=== PATIENT | male | born 1930 | race Asian ===

== ENCOUNTER 2016-11-03 15:49 | Inpatient (IN) | payer MEDICARE, MEDICAID ==
[2016-11-03] VITALS (7 sets, daily range): BP systolic 106–139; BP diastolic 64–95
[~2016-11-03] VITALS: Ht 160 cm; Wt 59.0 kg
[~2016-11-03 15:49] MED LIST: ATORVASTATIN CA20 MG ORAL; COMBIVENT RESPIM4 GM IH; FLUTICASONE PRO16 G1 NASAL; MIRAPEX1 MG PO; PLAVIX75 MG ORAL; PRAMIPEXOLE DI0.5 MG ORAL; TERAZOSIN HCL2 MG PO
[2016-11-03] MEDS ORDERED: Ipratropium 0.02% Inh Soln 2.5ml UD HHN ONE (16:00)
[2016-11-03] MEDS ORDERED: Albuterol ud Inhalation HHN ONE ×2 (16:00→17:00)
[2016-11-03] MEDS ORDERED: MELOXICAM15 MG PO (16:09)
[2016-11-03] MEDS ORDERED: MECLIZINE HCL12.5 MG ORAL (16:09)
[2016-11-03] MEDS ORDERED: MEGESTROL ACETA40 MG PO (16:09)
[2016-11-03] MEDS ORDERED: Morphine Sulfate 4mg/ml Inj IVP PRN (16:30)
[2016-11-03] MEDS ORDERED: DuoNeb 0.5-3(2.5)mg/3ml neb HHN PRN (16:30)
[2016-11-03] MEDS ORDERED: Nitroglycerin Subl 0.4mg tab (Bottle Of 25) SL PRN (16:30)
[2016-11-03] MEDS ORDERED: Morphine Sulfate 2mg/ml Inj IVP PRN ×2 (16:30→17:35)
[2016-11-03] MEDS ORDERED: LORazepam Inj 2mg/ml 1ml IV PRN (16:30)
--- NOTE | 2016-11-03 16:30 | Diagnostic Imaging Report ---
Indications: Altered mental status Technique: Continuous helical CT imaging of the brain was performed with automatic exposure control on a Siemens sensation [address] scanner. Axial and coronal images were reconstructed at 5 mm slice thickness and interval. CTDI volume(s): 70 mGy Total DLP: 1400 mGy-cm Findings: Comparison: October 1914 Images degraded by motion. Lacunar infarcts right rios radiata and head of left caudate nucleus, chronic microvascular ischemic changes throughout the cerebral periventricular and deep white matter, diffuse atrophy unchanged. No evidence of mass or hemorrhage, other attenuation abnormality, mass effect, midline shift, hydrocephalus or increased intracranial pressure. Bone window images are unremarkable. Visualized paranasal sinuses and mastoid air cells are clear. 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 Stable chronic microvascular ischemic changes bilateral white matter Stable atrophy The CT scanner at [facility] is accredited by the [employer] and the scans are performed using protocols designed to limit radiation exposure to as low as reasonably achievable to attain images of sufficient resolution adequate for diagnostic evaluation.
--- NOTE | 2016-11-03 16:34 | Diagnostic Imaging Report ---
Indications: Shortness of breath Technique: Portable AP chest Findings: Comparison: 03/15/15 Irregular consolidation and volume loss of the right upper lung with overlying chronic rib cage deformity, cortical scarring with interspersed lucencies and calcified granulomas left upper lung unchanged. Increased interstitial markings in both lung bases unchanged. No new pulmonary parenchymal or pleural abnormalities demonstrated. Heart size remains within normal limits. Aortic arch calcification, thoracolumbar scoliosis, diffuse osteopenia again noted. Aortic stent graft now visualized. IMPRESSION: No evidence of acute cardiopulmonary disease, unchanged Stable chronic changes as described Endotracheal and nasogastric extubation
[2016-11-03 16:40] LABS: BASOPHILS % (AUTO) 2.3 % (0.0-2.0); EOSINOPHILS % (AUTO) 0.7 % (0.0-3.0); LYMPHOCYTES % (AUTO) 6.9 % (20.0-45.0); MEAN CORPUSCULAR HEMOGLOBIN 36.5 PG (27.0-31.0); MEAN CORPUSCULAR HGB CONC 36.2 G/DL (32.0-36.0); MEAN CORPUSCULAR VOLUME 101 FL (80-99); MEAN PLATELET VOLUME 5.7 FL (6.5-10.1); MONOCYTES % (AUTO) 14.7 % (1.0-10.0); NEUTROPHILS % (AUTO) 75.4 % (45.0-75.0); PLATELET COUNT 178 K/UL (150-450); RED BLOOD COUNT 3.35 M/UL (4.70-6.10); RED CELL DISTRIBUTION WIDTH 12.1 % (11.6-14.8); WHITE BLOOD COUNT 4.9 K/UL (4.8-10.8)
[2016-11-03 16:45] LABS: ALANINE AMINOTRANSFERASE 23 U/L (3-41); ALBUMIN/GLOBULIN RATIO 1.4 (1.0-2.7); ANION GAP 12 (5-15); ASPARTATE AMINO TRANSFERASE 37 U/L (5-40); CALCIUM 9.5 mg/dL (8.6-10.2); CARBON DIOXIDE 32 mEQ/L (20-30); CHLORIDE 96 mEQ/L (98-107); HEMOLYSIS 119; POTASSIUM 4.9 mEQ/L (3.4-4.9); SODIUM 140 mEQ/L (135-145); TOTAL PROTEIN 6.3 g/dL (6.6-8.7)
[2016-11-03 16:46] LABS: TROPONIN I < 0.30 ng/mL (<=0.30)
--- NOTE | 2016-11-03 16:46 | Emergency Room Report ---
History of Present Illness General Chief Complaint: Altered Level of Consciousness Source: Medical Record, EMS, PMD Present Illness HPI This patient is brought in by EMS. The patient is unable to give a history. I also obtained the patient's medical record from the primary care physician Dr. Anthony. This patient has a history of COPD and respiratory failure. He is status post a lobectomy and has restrictive lung disease. His primary physician states that he sent him in because he has had worsening shortness of breath and decreased mentation lately. The who knows this patient is not here. EMS report that he was hypoxemic on arrival with O2 sats in the 80s. He did respond to based mask oxygen. The patient has not respond other than agitated with pain. Allergies: Coded Allergies: No Known Allergies (Unverified , 03/13/15) Patient History Past Medical History: see triage record, old chart reviewed, COPD, other - Severe kyphosoliosis. Past Surgical History: other - Lobectomy Social History: Denies: alcohol use, drug use, smoking Reviewed Nursing Documentation: PMH: Agreed, PSxH: Agreed Nursing Documentation-PMH Hx Cardiac Problems: Yes Hx COPD: Yes Hx Cancer: No Hx Gastrointestinal Problems: No Hx Neurological Problems: Yes Hx Seizures: Yes Hx Dizziness: Yes Review of Systems All Other Systems: limited Physical Exam Vital Signs Date Time Temp Pulse Resp B/P Pulse Ox O2 Delivery O2 Flow Rate FiO2 11/03/16 15:28 97.3 86 14 140/90 94 Non-Rebreather 11/03/16 16:26 2.0 Sp02 EP Interpretation: reviewed, abnormal General Appearance: no apparent distress, non-toxic, lethargic Head: normocephalic, atraumatic Eyes: bilateral eye PERRL, bilateral eye normal inspection ENT: normal pharynx, no angioedema Neck: limited range of motion - Severe kypho-scoliosis Respiratory: chest non-tender, lungs clear, normal breath sounds, no respiratory distress, no retraction, no accessory muscle use Cardiovascular #1: regular rate, rhythm, no edema, systolic murmur Gastrointestinal: normal bowel sounds, non tender, soft, non-distended, no guarding, no rebound Rectal: deferred Musculoskeletal: normal range of motion, non-tender, swelling - 1+pitting edema BLE Neurologic: sensory intact, other - Lethargic but will open eye to name ([place] ) and squeeze hand. Unable to fully assess. Non-focal Psychiatric: judgement/insight normal, memory normal, mood/affect normal, no suicidal/homicidal ideation Skin: normal color, no rash, warm/dry, well hydrated Medical Decision Making Diagnostic Impression: Primary Impression: Respiratory failure, acute ER Course This elderly male presents with hypoxemia and CO2 retention. He is able to follow simple commands in [place]. Likely this patient has chronic CO2 retention. He is placed on BiPAP. He is maintaining his oxygen saturation in the high 90s. He does have an elevated PCO2. However, his respiratory rate is 16-18 and he appears to be doing well without respiratory distress. Given the patient's age and severe cervical scoliosis that has the patient flexed at 45 in the neck, I felt that paralyzation and intubation without anesthesia backup would be dangerous for this patient. Therefore, given that the patient is doing well on BiPAP I decided to avoid intubation. This was discussed with the on-call vessel captain who agreed with the plan. I did not identify an infectious etiology, however, I did give the patient respiratory antibiotics as a precaution. CT of the head shows no acute CVA or bleed. I discussed the case with the patient's primary care physician who sent him into the emergency department. He requested he be admitted by an production recovery operator and vessel captain. This patient is admitted to the ICU for further evaluation and treatment. This patient is critically ill. This patient required complex medical decision- making, aggressive intervention, extensive laboratory workup and monitoring. Critical care time: 40 minutes. Labs Test 11/03/16 16:00 11/03/16 17:45 White Blood Count 4.9 K/UL (4.8-10.8) Red Blood Count 3.35 M/UL (4.70-6.10) Hemoglobin 12.2 G/DL (14.2-18.0) Hematocrit 33.8 % (42.0-52.0) Mean Corpuscular Volume 101 FL (80-99) Mean Corpuscular Hemoglobin 36.5 PG (27.0-31.0) Mean Corpuscular Hemoglobin Concent 36.2 G/DL (32.0-36.0) Red Cell Distribution Width 12.1 % (11.6-14.8) Platelet Count 178 K/UL (150-450) Mean Platelet Volume 5.7 FL (6.5-10.1) Neutrophils (%) (Auto) 75.4 % (45.0-75.0) Lymphocytes (%) (Auto) 6.9 % (20.0-45.0) Monocytes (%) (Auto) 14.7 % (1.0-10.0) Eosinophils (%) (Auto) 0.7 % (0.0-3.0) Basophils (%) (Auto) 2.3 % (0.0-2.0) Urine Color Yellow Urine Appearance Clear Urine pH 5 (4.5-8.0) Urine Specific [place] 1.020 (1.005-1.035) Urine Protein 2+ (NEGATIVE) Urine Glucose (UA) Negative (NEGATIVE) Urine Ketones 1+ (NEGATIVE) Urine Occult Blood 5+ (NEGATIVE) Urine Nitrite Negative (NEGATIVE) Urine Bilirubin Negative (NEGATIVE) Urine Urobilinogen Normal MG/DL (0.0-1.0) Urine Leukocyte Esterase 1+ (NEGATIVE) Urine RBC Tntc /HPF (0 - 0) Urine WBC 0-2 /HPF (0 - 0) Urine Squamous Epithelial Cells None /LPF (NONE/OCC) Urine Bacteria Few /HPF (NONE) Sodium Level 140 mEQ/L (135-145) Potassium Level 4.9 mEQ/L (3.4-4.9) Chloride Level 96 mEQ/L (98-107) Carbon Dioxide Level 32 mEQ/L (20-30) Anion Gap 12 (5-15) Blood Urea Nitrogen 32 mg/dL (7-23) Creatinine 1.0 mg/dL (0.7-1.2) Estimat Glomerular Filtration Rate mL/min (>60) Glucose Level 131 mg/dL (74-106) Lactic Acid Level 1.40 mmol/L (0.66-2.22) Calcium Level 9.5 mg/dL (8.6-10.2) Total Bilirubin 0.2 mg/dL (0.0-1.2) Aspartate Amino Transf (AST/SGOT) 37 U/L (5-40) Alanine Aminotransferase (ALT/SGPT) 23 U/L (3-41) Alkaline Phosphatase 53 U/L (40-129) Total Creatine Kinase 161 U/L (38-174) Creatine Kinase MB 5.7 ng/mL (< 6.7) Creatine Kinase MB Relative Index 3.5 Troponin I < 0.30 ng/mL (<=0.30) Total Protein 6.3 g/dL (6.6-8.7) Albumin 3.7 g/dL (3.5-5.2) Globulin 2.6 g/dL Albumin/Globulin Ratio 1.4 (1.0-2.7) Arterial Blood pH 7.270 (7.350-7.450) Arterial Blood Partial Pressure CO2 68.0 mmHg (35.0-45.0) Arterial Blood Partial Pressure O2 73.6 mmHg (75.0-100.0) Arterial Blood HCO3 30.5 mmol/L (22.0-26.0) Arterial Blood Oxygen Saturation 91.4 % (92.0-98.0) Arterial Blood Base Excess 2.1 Sam Test Positive EKG Diagnostic Results Rate: normal Rhythm: NSR ST Segments: no acute changes Rhythm Strip Diag. Results EP Interpretation: yes Rate: 90's Rhythm: NSR, no PVC's, no ectopy Chest X-Ray Diagnostic Results EP Interpretation: Yes Findings: no consolidation, no effusion, no pneumothorax, no acute cardiopulmonary disease Number of Views: 1 CT/MRI/US Diagnostic Results CT/MRI/US Diagnostic Results : Imaging Test Ordered: CT head Impression No ICB. No acute process. See official report. Last Vital Signs Date Time Temp Pulse Resp B/P Pulse Ox O2 Delivery O2 Flow Rate FiO2 11/03/16 16:30 96 26 98 Nasal Cannula 2.0 11/03/16 16:26 98.8 126/64 Disposition: ADMITTED INPATIENT Condition: Critical Referrals: NOT CHOSEN IPA/,REFERRING (PCP) GISELLE SARAVIA D.O. November 03, 2016 16:46
[2016-11-03 16:47] LABS: APPEARANCE,URINE CLEAR; KETONES,URINE 1+ (NEGATIVE); LEUKOCYTE ESTERASE ,URINE 1+ (NEGATIVE); NITRITE,URINE NEGATIVE (NEGATIVE); PH,URINE 5 (4.5-8.0); PROTEIN,URINE 2+ (NEGATIVE); UROBILINOGEN,URINE NORMAL MG/DL (0.0-1.0)
[2016-11-03 16:56] LABS: CKMB 5.7 ng/mL (< 6.7)
[2016-11-03 16:57] LABS: RBC,URINE TNTC /HPF (0 - 0); WBC,URINE 0-2 /HPF (0 - 0)
[2016-11-03 16:58] LABS: BACTERIA,URINE FEW /HPF
[2016-11-03] MEDS ORDERED: METHYLPREDNISOLONE SOD SUCC IVPB ONE (17:00)
[2016-11-03] MEDS ORDERED: cefTRIAXone 1 GM in NS 55 ML IVPB ONE (17:00)
[2016-11-03] MEDS ORDERED: NS IVPB ONE (17:00)
[2016-11-03] MEDS ORDERED: Solu-MEDROL 125mg Inj IVP ONE (17:00)
[2016-11-03] MEDS ORDERED: D5 1/2NS 1,000 ML IV SCH (18:00)
[2016-11-03 18:01] LABS: ABG ALLEN TEST POSITIVE; ABG BASE EXCESS 2.1
[2016-11-03 19:42] LABS: ABG ALLEN TEST POSITIVE; ABG BASE EXCESS 0.7; ABG PCO2 65.4 mmHg (35.0-45.0)
[2016-11-03] MEDS: Piperacillin/Tazobactam 3.375 GM in D5W 110 ML IVPB SCH (20:00)
[2016-11-03] MEDS: NovoLOG Insulin Flexpen SUBQ SCH (21:00)
[2016-11-03] MEDS: Heparin 5000 units/ml inj SUBQ SCH (21:00)
--- NOTE | 2016-11-03 23:19 | History and Physical ---
History of Present Illness General Date patient seen: November 03, 2016 Reason for Hospitalization: Altered Level of Consciousness Present Illness HPI 85 year old male with hx of advanced COPD, s/p thoracoplasty, restrictive lung disease, brought in by EMS because of worsening shortness of breath and decreased mentation lately. EMS report that he was hypoxemic on arrival with O2 sats in the 80s. He did respond to based mask oxygen. He was in respiratory failure in ER and was put on BIPAP and transferring to ICU> Allergies: Coded Allergies: No Known Allergies (Unverified , 03/13/15) Medication History Scheduled Atorvastatin Calcium* (Atorvastatin Calcium*), 10 MG ORAL BEDTIME, (Reported) Clopidogrel Bisulfate* (Plavix*), 75 MG ORAL DAILY, (Reported) Meloxicam* (Meloxicam*), 12.5 MG PO DAILY, (Reported) Pramipexole Dihydrochloride* (Mirapex*), 0.5 MG ORAL THREE TIMES A DAY, ( Reported) Miscellaneous Medications Ipratropium/Albuterol Sulfate (Combivent Respimat Inhal [place]), 4 GM IH, ( Reported) Megestrol Acetate (Megestrol Acetate), 40 MG PO, (Reported) Pramipexole Di-Hcl (Mirapex), 0.5 MG PO, (Reported) Terazosin Hcl (Terazosin Hcl), 2 MG PO, (Reported) Discontinued Medications Fluticasone Propionate* (Fluticasone Propionate*), 1 SPRAY NASAL DAILY, ( Reported) Discontinued Reason: Pt stopped taking med Meclizine Hcl* (Meclizine*), 12.5 MG ORAL THREE TIMES A DAY, (Reported) Discontinued Reason: Pt stopped taking med Patient History Healthcare decision maker carla buchanan, daughter Resuscitation status Full Code Advanced Directive on File No Past Medical/Surgical History Past Medical/Surgical History: (1) Restrictive lung disease (2) thoracoplasy (3) Restless leg syndrome Physical Exam General Appearance: WD/WN Lines, tubes and drains: peripheral HEENT: normocephalic, atraumatic Neck: non-tender, supple Respiratory/Chest: chest wall non-tender, rhonchi - bilaterally Breasts: no masses Abdomen: normal bowel sounds, non tender Genitourinary/Rectal: normal genital exam, normal rectal exam Last 24 Hour Vital Signs Date Time Temp Pulse Resp B/P Pulse Ox O2 Delivery O2 Flow Rate FiO2 11/03/16 22:47 91 24 96 Facial 30 11/03/16 22:01 80 20 131/74 97 Bi-pap 30 11/03/16 21:07 93 20 99 Facial 30 11/03/16 21:00 90 11/03/16 21:00 30 11/03/16 21:00 97.5 90 22 129/78 96 Bi-pap 30 11/03/16 20:35 84 18 143/83 97 Bi-pap 30 11/03/16 19:51 85 16 94 Facial 30 11/03/16 19:30 86 16 116/77 97 Bi-pap 30 11/03/16 18:28 97.0 97 20 106/67 96 Bi-pap 30 11/03/16 18:26 30 11/03/16 17:23 91 22 139/95 95 Nasal Cannula 4.0 11/03/16 16:30 96 26 98 Nasal Cannula 2.0 11/03/16 16:29 98 22 Nasal Cannula 2.0 11/03/16 16:29 96 26 Nasal Cannula 2.0 11/03/16 16:26 98.8 98 22 126/64 99 Nasal Cannula 2.0 11/03/16 15:28 97.3 86 14 140/90 94 Non-Rebreather Laboratory Tests Test 11/03/16 16:00 11/03/16 17:45 11/03/16 19:31 White Blood Count 4.9 K/UL (4.8-10.8) Red Blood Count 3.35 M/UL (4.70-6.10) L Hemoglobin 12.2 G/DL (14.2-18.0) L Hematocrit 33.8 % (42.0-52.0) L Mean Corpuscular Volume 101 FL (80-99) H Mean Corpuscular Hemoglobin 36.5 PG (27.0-31.0) H Mean Corpuscular Hemoglobin Concent 36.2 G/DL (32.0-36.0) H Red Cell Distribution Width 12.1 % (11.6-14.8) Platelet Count 178 K/UL (150-450) Mean Platelet Volume 5.7 FL (6.5-10.1) L Neutrophils (%) (Auto) 75.4 % (45.0-75.0) H Lymphocytes (%) (Auto) 6.9 % (20.0-45.0) L Monocytes (%) (Auto) 14.7 % (1.0-10.0) H Eosinophils (%) (Auto) 0.7 % (0.0-3.0) Basophils (%) (Auto) 2.3 % (0.0-2.0) H Urine Color Yellow Urine Appearance Clear Urine pH 5 (4.5-8.0) Urine Specific [place] 1.020 (1.005-1.035) Urine Protein 2+ (NEGATIVE) H Urine Glucose (UA) Negative (NEGATIVE) Urine Ketones 1+ (NEGATIVE) H Urine Occult Blood 5+ (NEGATIVE) H Urine Nitrite Negative (NEGATIVE) Urine Bilirubin Negative (NEGATIVE) Urine Urobilinogen Normal MG/DL (0.0-1.0) Urine Leukocyte Esterase 1+ (NEGATIVE) H Urine RBC Tntc /HPF (0 - 0) H Urine WBC 0-2 /HPF (0 - 0) Urine Squamous Epithelial Cells None /LPF (NONE/OCC) Urine Bacteria Few /HPF (NONE) Sodium Level 140 mEQ/L (135-145) Potassium Level 4.9 mEQ/L (3.4-4.9) Chloride Level 96 mEQ/L (98-107) L Carbon Dioxide Level 32 mEQ/L (20-30) H Anion Gap 12 (5-15) Blood Urea Nitrogen 32 mg/dL (7-23) H Creatinine 1.0 mg/dL (0.7-1.2) Estimat Glomerular Filtration Rate mL/min (>60) Glucose Level 131 mg/dL (74-106) H Lactic Acid Level 1.40 mmol/L (0.66-2.22) Calcium Level 9.5 mg/dL (8.6-10.2) Total Bilirubin 0.2 mg/dL (0.0-1.2) Aspartate Amino Transf (AST/SGOT) 37 U/L (5-40) Alanine Aminotransferase (ALT/SGPT) 23 U/L (3-41) Alkaline Phosphatase 53 U/L (40-129) Total Creatine Kinase 161 U/L (38-174) Creatine Kinase MB 5.7 ng/mL (< 6.7) Creatine Kinase MB Relative Index 3.5 Troponin I < 0.30 ng/mL (<=0.30) Total Protein 6.3 g/dL (6.6-8.7) L Albumin 3.7 g/dL (3.5-5.2) Globulin 2.6 g/dL Albumin/Globulin Ratio 1.4 (1.0-2.7) Arterial Blood pH 7.270 (7.350-7.450) 7.265 (7.350-7.450) Arterial Blood Partial Pressure CO2 68.0 mmHg (35.0-45.0) *H 65.4 mmHg (35.0-45.0) *H Arterial Blood Partial Pressure O2 73.6 mmHg (75.0-100.0) L 87.2 mmHg (75.0-100.0) Arterial Blood HCO3 30.5 mmol/L (22.0-26.0) H 29.0 mmol/L (22.0-26.0) H Arterial Blood Oxygen Saturation 91.4 % (92.0-98.0) L 94.1 % (92.0-98.0) Arterial Blood Base Excess 2.1 0.7 Sam Test Positive Positive Height (Feet): 5 Height (Inches): 3.00 Weight (Pounds): 130 Medications Current Medications Medications (Trade) Dose Ordered Sig/Jer Route PRN Reason Start Time Stop Time Status Last Admin Dose Admin Albuterol/ Ipratropium (DuoNeb 0.5-3(2.5)mg/3ml) 3 ml Q4H PRN HHN dyspnea 11/03/16 16:30 11/08/16 16:29 Dextrose (Dextrose 50%) STAT PRN IV Hypoglycemia 11/03/16 16:30 12/03/16 16:29 Dextrose/Sodium Chloride (D5 0.45% NS) 1,000 ml @ 50 mls/hr Q20H IV 11/03/16 18:00 12/03/16 17:59 11/03/16 18:00 Heparin Sodium (Porcine) (Heparin 5000 units/ml) 5,000 units EVERY 12 HOURS SUBQ 11/03/16 21:00 12/03/16 20:59 11/03/16 21:00 Insulin Aspart (NovoLOG) BEFORE MEALS AND HS SUBQ 11/03/16 21:00 12/03/16 20:59 11/03/16 21:00 Lorazepam (Ativan 2mg/ml 1ml) 2 mg Q4H PRN IV For Anxiety 11/03/16 16:30 11/10/16 16:29 Methylprednisolone Sodium Succinate (Solu-MEDROL) 60 mg EVERY 6 HOURS IV 11/03/16 18:00 12/03/16 17:59 Morphine Sulfate (Morphine Sulfate) 2 mg Q4H PRN IVP MODERATE PAIN 4-6 11/03/16 17:35 11/10/16 16:29 Morphine Sulfate (Morphine Sulfate) 4 mg Q4H PRN IVP PAIN 7-10 11/03/16 16:30 11/10/16 16:29 Nitroglycerin (Ntg) 0.4 mg Q5M X 3 DOSES PRN SL Prn Chest Pain 11/03/16 16:30 12/03/16 16:29 Ondansetron HCl 4 mg 4 mg Q6H PRN IVP Nausea & Vomiting 11/03/16 16:30 12/03/16 16:29 Pantoprazole 40 mg 40 mg DAILY IV 11/04/16 09:00 12/04/16 08:59 Piperacillin Sod/ Tazobactam Sod/ Dextrose (Zosyn/D5W) 110 ml @ 27.5 mls/hr EVERY 8 HOURS IVPB 11/03/16 20:00 11/10/16 19:59 11/03/16 20:00 Assessment/Plan Problem List: (1) Respiratory failure, acute (2) Aspiration pneumonia ICD Codes: J69.0 - Pneumonitis due to inhalation of food and vomit SNOMED: 203878977 (3) Restrictive lung disease ICD Codes: J98.4 - Other disorders of lung SNOMED: 75656365 (4) Encephalopathy acute (5) thoracoplasy Assessment/Plan titrate bipap NG tube feeding titrate fio2 check sputum ICU monitoring dvt prophylaxis stress ulcer prophylaxis. MARLYS WYMAN November 03, 2016 23:19
[2016-11-04] VITALS (24 sets, daily range): BP systolic 95–140; BP diastolic 51–82
[2016-11-04] MEDS: Solu-MEDROL 125mg Inj IV SCH ×6 (00:49→23:41)
[2016-11-04] MEDS: Piperacillin/Tazobactam 3.375 GM in D5W 110 ML IVPB SCH ×3 (05:48→23:39)
[2016-11-04] MEDS: NovoLOG Insulin Flexpen SUBQ SCH ×5 (06:19→23:44)
[2016-11-04 06:29] LABS: MEAN CORPUSCULAR HEMOGLOBIN 32.9 PG (27.0-31.0); MEAN CORPUSCULAR HGB CONC 32.7 G/DL (32.0-36.0); MEAN CORPUSCULAR VOLUME 101 FL (80-99); MEAN PLATELET VOLUME 5.7 FL (6.5-10.1); PLATELET COUNT 203 K/UL (150-450); RED BLOOD COUNT 3.69 M/UL (4.70-6.10); RED CELL DISTRIBUTION WIDTH 12.6 % (11.6-14.8); WHITE BLOOD COUNT 3.4 K/UL (4.8-10.8)
[2016-11-04 06:39] LABS: ALANINE AMINOTRANSFERASE 20 U/L (3-41); ALBUMIN/GLOBULIN RATIO 1.3 (1.0-2.7); ANION GAP 13 (5-15); ASPARTATE AMINO TRANSFERASE 24 U/L (5-40); CALCIUM 8.4 mg/dL (8.6-10.2); CARBON DIOXIDE 28 mEQ/L (20-30); CHLORIDE 100 mEQ/L (98-107); CREATININE 0.8 mg/dL (0.7-1.2); CRP QUANT 3.8 mg/dL (< 0.5); HEMOLYSIS 8; MAGNESIUM 2.1 mg/dL (1.7-2.5); PHOSPHORUS 3.5 mg/dL (2.5-4.8); POTASSIUM 4.3 mEQ/L (3.4-4.9); SODIUM 141 mEQ/L (135-145); TOTAL PROTEIN 5.4 g/dL (6.6-8.7)
[2016-11-04] MEDS: Pantoprazole Inj IV SCH (10:25)
[2016-11-04] MEDS: Heparin 5000 units/ml inj SUBQ SCH ×2 (10:27→21:04)
[2016-11-04 10:43] LABS: ABG ALLEN TEST POSITIVE; ABG BASE EXCESS 3.4
[2016-11-04 10:49] LABS: ERYTHROCYTE SEDIMENTATION RATE 9 MM/HR (0-30)
--- NOTE | 2016-11-04 10:49 | Diagnostic Imaging Report ---
Indication: Dyspnea Technique: XRAY CHEST 1 V Comparison: 11/03/16 Findings: Nasogastric tube is now present within the stomach. The cardiomediastinal silhouette is stable. There is again deformity of the right hemithorax. The lungs are unchanged without new infiltrates. Abdominal aortic stent graft is partially visualized. The bilateral costophrenic angles are again blunted. Impression: Nasogastric tube placement within the stomach. Otherwise stable chest.
--- NOTE | 2016-11-04 11:47 | Pulmonolgy Critical Care Note ---
Critical Care - Asmt/Plan Problems: (1) Respiratory failure, acute (2) Aspiration pneumonia (3) Encephalopathy acute (4) thoracoplasy (5) Restrictive lung disease Respiratory: monitor respiratory rate, adjust FIO2, CXR, ABG Cardiac: continue to monitor HR/BP Renal: F/U I&O, decrease IV fluid Infectious Disease: check cultures, continue antibiotics Gastrointestinal: continue feedings/current rate, adjust feedings Endocrine: monitor blood sugar Hematologic: transfuse if hgb<8.5 Neurologic: PRN Ativan, keep patient comfortable Affect: PRN ativan Prophylaxis: Protonix Disposition: keep in ICU Discussed with: nurses, consultants, case finisherrestaurant operations manager - Objective Last 24 Hour Vital Signs Date Time Temp Pulse Resp B/P Pulse Ox O2 Delivery O2 Flow Rate FiO2 11/04/16 07:00 82 26 100 Facial 40 11/04/16 07:00 84 19 132/82 99 Bi-pap 40 11/04/16 06:00 90 19 133/72 96 Bi-pap 40 11/04/16 05:13 78 22 98 Facial 40 11/04/16 05:00 80 20 140/71 99 Bi-pap 40 11/04/16 04:00 97.2 81 20 125/70 98 Bi-pap 40 11/04/16 04:00 40 11/04/16 04:00 81 11/04/16 03:00 81 20 124/71 97 Bi-pap 40 11/04/16 02:45 88 22 97 Facial 40 11/04/16 02:00 80 20 127/77 98 Bi-pap 40 11/04/16 01:00 78 20 137/78 98 Bi-pap 40 11/04/16 00:57 77 19 99 Facial 40 11/04/16 00:00 77 11/04/16 00:00 97.3 77 20 118/78 94 Bi-pap 30 11/04/16 00:00 30 11/03/16 23:00 82 21 123/73 97 Bi-pap 30 11/03/16 22:47 91 24 96 Facial 30 11/03/16 22:01 80 20 131/74 97 Bi-pap 30 11/03/16 21:07 93 20 99 Facial 30 11/03/16 21:00 90 11/03/16 21:00 30 11/03/16 21:00 97.5 90 22 129/78 96 Bi-pap 30 11/03/16 20:35 84 18 143/83 97 Bi-pap 30 11/03/16 19:51 85 16 94 Facial 30 11/03/16 19:30 86 16 116/77 97 Bi-pap 30 11/03/16 18:28 97.0 97 20 106/67 96 Bi-pap 30 11/03/16 18:26 30 11/03/16 17:23 91 22 139/95 95 Nasal Cannula 4.0 11/03/16 16:30 96 26 98 Nasal Cannula 2.0 11/03/16 16:29 98 22 Nasal Cannula 2.0 11/03/16 16:29 96 26 Nasal Cannula 2.0 11/03/16 16:26 98.8 98 22 126/64 99 Nasal Cannula 2.0 11/03/16 15:28 97.3 86 14 140/90 94 Non-Rebreather Status: awake Condition: critical HEENT: atraumatic Lungs: clear Heart: HR/BP stable Abdomen: soft, non-tender, feeding tube Extremities: no C/C/E Accucheck: 120 Critical Care - Subjective ROS Limited/Unobtainable: Yes ICU Day: 2 Intubation Day: on and off bipap Condition: critical EKG Rhythm: Sinus Rhythm FI02: 40 Sputum Amount: None Fluids: d5 1/2 NS 50 cc/hour Tube Feeding Amount: 20 I&O: Intake and Output 11/03/16 11/04/16 19:00 07:00 Intake Total 55 ml 745.0 ml Output Total 760 ml 440 ml Balance -705 ml 305.0 ml Intake Oral 0 ml IV Total 55 ml 665.0 ml Tube Feeding 80 ml Output Urine Total 760 ml 440 ml CXR: no change Labs: Laboratory Tests Test 11/03/16 16:00 11/03/16 17:45 11/03/16 19:31 11/04/16 03:48 White Blood Count 4.9 K/UL (4.8-10.8) 3.4 K/UL (4.8-10.8) L Red Blood Count 3.35 M/UL (4.70-6.10) L 3.69 M/UL (4.70-6.10) L Hemoglobin 12.2 G/DL (14.2-18.0) L 12.1 G/DL (14.2-18.0) L Hematocrit 33.8 % (42.0-52.0) L 37.1 % (42.0-52.0) L Mean Corpuscular Volume 101 FL (80-99) H 101 FL (80-99) H Mean Corpuscular Hemoglobin 36.5 PG (27.0-31.0) H 32.9 PG (27.0-31.0) H Mean Corpuscular Hemoglobin Concent 36.2 G/DL (32.0-36.0) H 32.7 G/DL (32.0-36.0) Red Cell Distribution Width 12.1 % (11.6-14.8) 12.6 % (11.6-14.8) Platelet Count 178 K/UL (150-450) 203 K/UL (150-450) Mean Platelet Volume 5.7 FL (6.5-10.1) L 5.7 FL (6.5-10.1) L Neutrophils (%) (Auto) 75.4 % (45.0-75.0) H % (45.0-75.0) Lymphocytes (%) (Auto) 6.9 % (20.0-45.0) L % (20.0-45.0) Monocytes (%) (Auto) 14.7 % (1.0-10.0) H % (1.0-10.0) Eosinophils (%) (Auto) 0.7 % (0.0-3.0) % (0.0-3.0) Basophils (%) (Auto) 2.3 % (0.0-2.0) H % (0.0-2.0) Urine Color Yellow Urine Appearance Clear Urine pH 5 (4.5-8.0) Urine Specific [place] 1.020 (1.005-1.035) Urine Protein 2+ (NEGATIVE) H Urine Glucose (UA) Negative (NEGATIVE) Urine Ketones 1+ (NEGATIVE) H Urine Occult Blood 5+ (NEGATIVE) H Urine Nitrite Negative (NEGATIVE) Urine Bilirubin Negative (NEGATIVE) Urine Urobilinogen Normal MG/DL (0.0-1.0) Urine Leukocyte Esterase 1+ (NEGATIVE) H Urine RBC Tntc /HPF (0 - 0) H Urine WBC 0-2 /HPF (0 - 0) Urine Squamous Epithelial Cells None /LPF (NONE/OCC) Urine Bacteria Few /HPF (NONE) Sodium Level 140 mEQ/L (135-145) 141 mEQ/L (135-145) Potassium Level 4.9 mEQ/L (3.4-4.9) 4.3 mEQ/L (3.4-4.9) Chloride Level 96 mEQ/L (98-107) L 100 mEQ/L (98-107) Carbon Dioxide Level 32 mEQ/L (20-30) H 28 mEQ/L (20-30) Anion Gap 12 (5-15) 13 (5-15) Blood Urea Nitrogen 32 mg/dL (7-23) H 26 mg/dL (7-23) H Creatinine 1.0 mg/dL (0.7-1.2) 0.8 mg/dL (0.7-1.2) Estimat Glomerular Filtration Rate mL/min (>60) mL/min (>60) Glucose Level 131 mg/dL (74-106) H 125 mg/dL (74-106) H Lactic Acid Level 1.40 mmol/L (0.66-2.22) Calcium Level 9.5 mg/dL (8.6-10.2) 8.4 mg/dL (8.6-10.2) L Total Bilirubin 0.2 mg/dL (0.0-1.2) 0.2 mg/dL (0.0-1.2) Aspartate Amino Transf (AST/SGOT) 37 U/L (5-40) 24 U/L (5-40) Alanine Aminotransferase (ALT/SGPT) 23 U/L (3-41) 20 U/L (3-41) Alkaline Phosphatase 53 U/L (40-129) 51 U/L (40-129) Total Creatine Kinase 161 U/L (38-174) Creatine Kinase MB 5.7 ng/mL (< 6.7) Creatine Kinase MB Relative Index 3.5 Troponin I < 0.30 ng/mL (<=0.30) Total Protein 6.3 g/dL (6.6-8.7) L 5.4 g/dL (6.6-8.7) L Albumin 3.7 g/dL (3.5-5.2) 3.1 g/dL (3.5-5.2) L Globulin 2.6 g/dL 2.3 g/dL Albumin/Globulin Ratio 1.4 (1.0-2.7) 1.3 (1.0-2.7) Arterial Blood pH 7.270 (7.350-7.450) 7.265 (7.350-7.450) Arterial Blood Partial Pressure CO2 68.0 mmHg (35.0-45.0) *H 65.4 mmHg (35.0-45.0) *H Arterial Blood Partial Pressure O2 73.6 mmHg (75.0-100.0) L 87.2 mmHg (75.0-100.0) Arterial Blood HCO3 30.5 mmol/L (22.0-26.0) H 29.0 mmol/L (22.0-26.0) H Arterial Blood Oxygen Saturation 91.4 % (92.0-98.0) L 94.1 % (92.0-98.0) Arterial Blood Base Excess 2.1 0.7 Sam Test Positive Positive Erythrocyte Sedimentation Rate 9 MM/HR (0-30) Phosphorus Level 3.5 mg/dL (2.5-4.8) Magnesium Level 2.1 mg/dL (1.7-2.5) C-Reactive Protein, Quantitative 3.8 mg/dL (< 0.5) H Test 11/04/16 10:34 Arterial Blood pH 7.300 (7.350-7.450) Arterial Blood Partial Pressure CO2 64.0 mmHg (35.0-45.0) *H Arterial Blood Partial Pressure O2 110.1 mmHg (75.0-100.0) H Arterial Blood HCO3 31.2 mmol/L (22.0-26.0) H Arterial Blood Oxygen Saturation 97.2 % (92.0-98.0) Arterial Blood Base Excess 3.4 Sam Test Positive MARLYS WYMAN November 04, 2016 11:47
[2016-11-04] MEDS: Theophylline 80mg/15ml ORAL SCH ×3 (12:00→23:41)
[2016-11-04] MEDS ORDERED: Tubing IV Secondary IV ONE (16:19)
[2016-11-04] MEDS: DuoNeb 0.5-3(2.5)mg/3ml neb HHN PRN (16:44)
--- NOTE | 2016-11-04 18:21 | Consultation ---
Consult Note Consult Note ID CONSULT: Raghav# [id number] Assessment/Plan ASSESSMENT: 85 y/o male with: // Acute on chronic respiratory failure SP BiPAP r/o COPD exacerbation vs CAP vs influenza - SCx pending - CXR: No evidence of acute cardiopulmonary disease. Stable chronic changes - h/o COPD, restrictive lung disease, thoracoplasty // Afebrile without leukocytosis // Acute encephalopathy - improved - CT Head: No evidence of acute intracranial pathology. 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 Will follow SHRUTHI JEREZ November 04, 2016 18:21
[2016-11-05] VITALS (24 sets, daily range): BP systolic 96–139; BP diastolic 47–79
--- NOTE | 2016-11-05 02:29 | Consultation ---
DATE OF CONSULTATION: 11/04/2016 INFECTIOUS DISEASE CONSULTATION: REQUESTING PHYSICIAN: Anahi Cruz M.D. REASON FOR CONSULTATION: Shortness of breath. HISTORY OF PRESENT ILLNESS: This is an 85-year-old male with a history of chronic lung disease admitted on 11/03/2016 with shortness of breath and cough. Chest x-ray shows no acute cardiopulmonary disease, stable chronic changes. He is afebrile without leukocytosis. He required BiPAP transiently. No breathing usually on nasal cannula, but with persistent cough. Also had some confusion. CT head showed no acute findings. cultures are pending. He has been started on empiric Zosyn and steroids and Infectious Disease now consulted to assist in management. PAST MEDICAL HISTORY: 1. Chronic obstructive pulmonary disease. 2. Restrictive lung disease. 3. Kyphosis. 4. Abdominal aortic aneurysm. PAST SURGICAL HISTORY: 1. Partial lobectomy. 2. Abdominal aortic stent graft repair. ALLERGIES: No known drug allergies. MEDICATIONS: 1. Zosyn. 2. Solu-Medrol. 3. Theophylline. 4. Protonix. 5. Subcutaneous heparin. SOCIAL HISTORY: The patient is and lives locally with family. No active tobacco, alcohol, or illicit drug abuse. FAMILY HISTORY: Noncontributory. REVIEW OF SYSTEMS: As per history of present illness. Ten systems reviewed, all pertinent positives and negatives noted. PHYSICAL EXAMINATION: GENERAL: No apparent distress. Nontoxic appearing. VITAL SIGNS: Maximum temperature 98.8 degrees, blood pressure 105/67, heart rate in the 90s, respiratory rate 20, and saturating 100% on 2 L nasal cannula. CARDIOVASCULAR: Regular rate and rhythm. No murmurs. PULMONARY: Decreased breath sounds bilaterally. ABDOMEN: Bowel sounds present. Soft, nondistended, and nontender. EXTREMITIES: No edema. SKIN: No rash. LABORATORY DATA: White blood cell count 3.4, hemoglobin 12.1, and platelets 203,000. Sodium 141, potassium 4.3, chloride 100, bicarbonate 28, BUN 26, and creatinine 0.8. ESR 9. Lactic acid 1.4. Liver function tests within normal limits. Troponin negative x1. MICROBIOLOGY: 1. On 11/03/2016, blood culture pending. 2. On 11/03/2016, sputum culture pending. IMAGIN. On 11/03/2016 chest x-ray, no evidence of acute cardiopulmonary disease and stable chronic changes. 2. On 11/03/2016 CT of the head, no acute findings. Old bilateral lacunar infarcts. Chronic microvascular ischemic changes and atrophy. ASSESSMENT: 1. [id number] respiratory failure, status post BiPAP, rule out chronic obstructive pulmonary disease exacerbation versus community-acquired pneumonia versus influenza. Sputum culture is pending. Chest x-ray shows no acute findings. He has underlying chronic obstructive pulmonary disease restrictive lung disease, status post thoracoplasty. 2. Afebrile without leukocytosis. 3. Acute encephalopathy, improved. CT of the head showed no acute findings. 4. Abdominal aortic aneurysm, status post stent graft repair. 5. No known drug allergies. 6. Full Code. PLAN: 1. Continue empiric Zosyn a day. 2. Check influenza screen. 3. Taper steroids per Pulmonary. 4. Follow up cultures. 5. Monitor CBC and temperatures. 6. Monitor BMP. 7. Monitor chest x-ray. 8. BiPAP as needed. Thank you. We will follow. Forrest Akers M.D. DR: Bradford JOB#: [id number] CC: Anahi Cruz M.D.; Fax#: [phone] Small, M.D. ; Fax#: [phone] Alborzi, M.D; Fax#: [phone]
[2016-11-05 05:58] LABS: MEAN CORPUSCULAR HEMOGLOBIN 33.5 PG (27.0-31.0); MEAN CORPUSCULAR HGB CONC 32.9 G/DL (32.0-36.0); MEAN CORPUSCULAR VOLUME 102 FL (80-99); MEAN PLATELET VOLUME 5.2 FL (6.5-10.1); PLATELET COUNT 199 K/UL (150-450); RED BLOOD COUNT 3.47 M/UL (4.70-6.10); RED CELL DISTRIBUTION WIDTH 12.2 % (11.6-14.8); WHITE BLOOD COUNT 5.5 K/UL (4.8-10.8)
[2016-11-05] MEDS: Theophylline 80mg/15ml ORAL SCH ×4 (05:59→23:45)
[2016-11-05] MEDS: Solu-MEDROL 125mg Inj IV SCH ×4 (05:59→23:44)
[2016-11-05] MEDS: Piperacillin/Tazobactam 3.375 GM in D5W 110 ML IVPB SCH ×3 (05:59→22:10)
[2016-11-05] MEDS: NovoLOG Insulin Flexpen SUBQ SCH ×4 (06:00→23:59)
[2016-11-05 06:12] LABS: ALANINE AMINOTRANSFERASE 18 U/L (3-41); ALBUMIN/GLOBULIN RATIO 1.5 (1.0-2.7); ANION GAP 12 (5-15); ASPARTATE AMINO TRANSFERASE 22 U/L (5-40); CALCIUM 8.6 mg/dL (8.6-10.2); CARBON DIOXIDE 31 mEQ/L (20-30); CHLORIDE 98 mEQ/L (98-107); CREATININE 0.9 mg/dL (0.7-1.2); HEMOLYSIS 7; MAGNESIUM 2.2 mg/dL (1.7-2.5); PHOSPHORUS 3.1 mg/dL (2.5-4.8); POTASSIUM 4.6 mEQ/L (3.4-4.9); SODIUM 141 mEQ/L (135-145); TOTAL PROTEIN 5.3 g/dL (6.6-8.7)
[2016-11-05] MEDS: Pantoprazole Inj IV SCH (08:51)
[2016-11-05] MEDS: Heparin 5000 units/ml inj SUBQ SCH ×2 (09:07→22:28)
[2016-11-05] MEDS: DuoNeb 0.5-3(2.5)mg/3ml neb HHN PRN ×3 (09:13→19:58)
[2016-11-05 09:42] LABS: ABG BASE EXCESS 2.6
[2016-11-05 09:43] LABS: ABG ALLEN TEST POSITIVE
--- NOTE | 2016-11-05 10:43 | Diagnostic Imaging Report ---
Indication: Dyspnea Technique: XRAY CHEST 1 V Comparison: 11/04/16 Findings: Nasogastric tube is been removed. The heart and lungs are otherwise unchanged. Osseous structures are stable. Abdominal aortic stent graft is partially visualized. Impression: Interval removal of nasogastric tube. Otherwise stable chest.
--- NOTE | 2016-11-05 11:40 | Pulmonolgy Critical Care Note ---
Critical Care - Asmt/Plan Problems: (1) Respiratory failure, acute (2) Aspiration pneumonia (3) Encephalopathy acute (4) thoracoplasy (5) Restrictive lung disease Respiratory: monitor respiratory rate, adjust FIO2 Cardiac: continue to monitor HR/BP Renal: F/U I&O, keep IV fluid, check electrolytes Infectious Disease: continue antibiotics Gastrointestinal: continue feedings/current rate Endocrine: monitor blood sugar, check TSH Hematologic: monitor H/H Neurologic: PRN Ativan Affect: PRN ativan Prophylaxis: Protonix Time Spent (Minutes): 40 Notes Reviewed: cardio, renal Discussed with: nurses, consultants, 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 - Objective Last 24 Hour Vital Signs Date Time Temp Pulse Resp B/P Pulse Ox O2 Delivery O2 Flow Rate FiO2 11/05/16 11:00 88 22 119/62 100 Bi-pap 35 11/05/16 10:00 88 22 108/69 98 Bi-pap 35 11/05/16 09:20 95 21 100 Nasal Cannula 3.0 11/05/16 09:00 90 26 115/61 98 Nasal Cannula 3.0 11/05/16 08:00 89 11/05/16 08:00 98.4 92 25 120/61 99 Nasal Cannula 3.0 11/05/16 07:01 99 Nasal Cannula 3.0 32 11/05/16 07:01 Nasal Cannula 3.0 32 11/05/16 07:00 89 22 128/74 98 Nasal Cannula 3.0 11/05/16 06:00 98 29 102/70 99 Nasal Cannula 3.0 11/05/16 05:00 95 29 125/77 99 Nasal Cannula 3.0 11/05/16 04:00 89 11/05/16 04:00 98.2 89 26 139/79 99 Nasal Cannula 3.0 11/05/16 03:00 93 27 115/71 98 Nasal Cannula 3.0 11/05/16 02:00 90 20 119/66 98 Nasal Cannula 3.0 11/05/16 01:00 91 24 120/66 98 Nasal Cannula 3.0 11/05/16 00:00 97.6 96 26 108/58 97 Nasal Cannula 3.0 11/05/16 00:00 96 11/04/16 23:00 96 22 118/65 98 Nasal Cannula 3.0 11/04/16 22:00 92 20 122/68 99 Nasal Cannula 3.0 11/04/16 21:00 89 23 120/76 98 Nasal Cannula 3.0 11/04/16 20:15 100 Nasal Cannula 3.0 32 11/04/16 20:15 Nasal Cannula 3.0 32 11/04/16 20:00 97.8 97 27 119/66 99 Nasal Cannula 3.0 11/04/16 20:00 97 11/04/16 19:00 91 28 95/61 100 Nasal Cannula 3.0 11/04/16 18:00 86 24 120/67 100 Nasal Cannula 3.0 11/04/16 17:00 93 31 100 Nasal Cannula 2.0 11/04/16 17:00 99 18 105/67 99 Nasal Cannula 3.0 11/04/16 16:44 88 26 100 Nasal Cannula 3.0 11/04/16 16:00 90 11/04/16 16:00 98.0 90 23 105/57 100 Nasal Cannula 3.0 11/04/16 15:00 89 18 119/67 99 Venturi Mask 40 11/04/16 14:00 94 18 125/67 98 Venturi Mask 40 11/04/16 13:00 91 20 109/65 98 Venturi Mask 40 11/04/16 12:00 92 11/04/16 12:00 40 11/04/16 12:00 98.3 90 18 117/67 99 Venturi Mask 40 Status: somnolent Condition: critical HEENT: atraumatic Neck: full ROM Lungs: clear Heart: HR/BP stable, HR/BP unstable Abdomen: soft, non-tender, feeding tube Extremities: no C/C/E, edema Decubiti: stage Micro: Microbiology Date/Time Source Procedure Growth Status 11/03/16 16:00 Blood Blood Culture - Preliminary NO GROWTH AFTER 24 HOURS Resulted 11/03/16 16:00 Blood Blood Culture - Preliminary NO GROWTH AFTER 24 HOURS Resulted Accucheck: 87 Critical Care - Subjective ROS Limited/Unobtainable: Yes ICU Day: 3 Intubation Day: bipap Interval Events: back on bipap because of increasing CO2 and acidosis FI02: 35 Sputum Amount: None Tube Feeding Amount: 40 I&O: Intake and Output 11/04/16 11/05/16 19:00 07:00 Intake Total 1015.0 ml 632.5 ml Output Total 455 ml 410 ml Balance 560.0 ml 222.5 ml Intake Oral 220 ml Free Water 180 ml 50 ml IV Total 415.0 ml 82.5 ml Tube Feeding 420 ml 280 ml Output Urine Total 455 ml 410 ml CXR: no change Labs: Laboratory Tests Test 11/05/16 04:05 11/05/16 09:30 White Blood Count 5.5 K/UL (4.8-10.8) # Red Blood Count 3.47 M/UL (4.70-6.10) L Hemoglobin 11.6 G/DL (14.2-18.0) L Hematocrit 35.4 % (42.0-52.0) L Mean Corpuscular Volume 102 FL (80-99) H Mean Corpuscular Hemoglobin 33.5 PG (27.0-31.0) H Mean Corpuscular Hemoglobin Concent 32.9 G/DL (32.0-36.0) Red Cell Distribution Width 12.2 % (11.6-14.8) Platelet Count 199 K/UL (150-450) Mean Platelet Volume 5.2 FL (6.5-10.1) L Neutrophils (%) (Auto) % (45.0-75.0) Lymphocytes (%) (Auto) % (20.0-45.0) Monocytes (%) (Auto) % (1.0-10.0) Eosinophils (%) (Auto) % (0.0-3.0) Basophils (%) (Auto) % (0.0-2.0) Sodium Level 141 mEQ/L (135-145) Potassium Level 4.6 mEQ/L (3.4-4.9) Chloride Level 98 mEQ/L (98-107) Carbon Dioxide Level 31 mEQ/L (20-30) H Anion Gap 12 (5-15) Blood Urea Nitrogen 27 mg/dL (7-23) H Creatinine 0.9 mg/dL (0.7-1.2) Estimat Glomerular Filtration Rate mL/min (>60) Glucose Level 114 mg/dL (74-106) H Calcium Level 8.6 mg/dL (8.6-10.2) Phosphorus Level 3.1 mg/dL (2.5-4.8) Magnesium Level 2.2 mg/dL (1.7-2.5) Total Bilirubin 0.2 mg/dL (0.0-1.2) Aspartate Amino Transf (AST/SGOT) 22 U/L (5-40) Alanine Aminotransferase (ALT/SGPT) 18 U/L (3-41) Alkaline Phosphatase 48 U/L (40-129) Total Protein 5.3 g/dL (6.6-8.7) L Albumin 3.2 g/dL (3.5-5.2) L Globulin 2.1 g/dL Albumin/Globulin Ratio 1.5 (1.0-2.7) Arterial Blood pH 7.245 (7.350-7.450) Arterial Blood Partial Pressure CO2 75.0 mmHg (35.0-45.0) *H Arterial Blood Partial Pressure O2 105.5 mmHg (75.0-100.0) H Arterial Blood HCO3 32.0 mmol/L (22.0-26.0) H Arterial Blood Oxygen Saturation 96.8 % (92.0-98.0) Arterial Blood Base Excess 2.6 Sam Test Positive MARLYS WYMAN November 05, 2016 11:40
[2016-11-05] MEDS ORDERED: Miralax 17gm pkt ORAL PRN (13:30)
[2016-11-05] MEDS: Docusate 100mg cap ORAL SCH (13:33)
--- NOTE | 2016-11-05 18:25 | Infectious Diseases Prog Note ---
Assessment/Plan Assessment/Plan ASSESSMENT: 85 y/o male with: // Acute on chronic respiratory failure SP BiPAP r/o COPD exacerbation vs CAP vs influenza - SCx pending - CXR 11/05: No evidence of acute cardiopulmonary disease. Stable chronic changes - negative: influenza - h/o COPD, restrictive lung disease, thoracoplasty // Afebrile without leukocytosis // Acute encephalopathy - improved - CT Head: No evidence of acute intracranial pathology. 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, chronic microvascular ischemic changes, atrophy // AAA SP stent graft repair // NKDA // Full Code PLAN: - continue empiric zosyn d# 3 / 5 - taper steroids per pulm - f/u cultures - monitor CBC, temperatures - monitor BMP - monitor CXR - BiPAP prn Subjective Allergies: Coded Allergies: No Known Allergies (Unverified , 03/13/15) Subjective remains afebrile denies SOB Objective Vital Signs Last 24 Hour Vital Signs Date Time Temp Pulse Resp B/P Pulse Ox O2 Delivery O2 Flow Rate FiO2 11/05/16 18:00 111 22 96/47 93 Nasal Cannula 3.0 11/05/16 17:00 90 21 115/52 98 Nasal Cannula 3.0 11/05/16 16:08 98 11/05/16 16:00 98.5 90 21 101/52 98 Nasal Cannula 3.0 11/05/16 15:00 90 21 107/52 98 Nasal Cannula 3.0 11/05/16 14:54 98 25 100 Nasal Cannula 2.0 11/05/16 14:43 102 23 100 Nasal Cannula 3.0 11/05/16 14:00 89 21 99/55 100 Nasal Cannula 3.0 11/05/16 13:00 86 22 105/49 100 Nasal Cannula 3.0 11/05/16 12:00 98.3 94 22 133/69 100 Nasal Cannula 3.0 11/05/16 12:00 90 11/05/16 11:00 88 22 119/62 100 Bi-pap 35 11/05/16 10:00 88 22 108/69 98 Bi-pap 35 11/05/16 09:20 95 21 100 Nasal Cannula 3.0 11/05/16 09:00 90 26 115/61 98 Nasal Cannula 3.0 11/05/16 08:00 89 11/05/16 08:00 98.4 92 25 120/61 99 Nasal Cannula 3.0 11/05/16 07:01 99 Nasal Cannula 3.0 32 11/05/16 07:01 Nasal Cannula 3.0 32 11/05/16 07:00 89 22 128/74 98 Nasal Cannula 3.0 11/05/16 06:00 98 29 102/70 99 Nasal Cannula 3.0 11/05/16 05:00 95 29 125/77 99 Nasal Cannula 3.0 11/05/16 04:00 89 11/05/16 04:00 98.2 89 26 139/79 99 Nasal Cannula 3.0 11/05/16 03:00 93 27 115/71 98 Nasal Cannula 3.0 11/05/16 02:00 90 20 119/66 98 Nasal Cannula 3.0 11/05/16 01:00 91 24 120/66 98 Nasal Cannula 3.0 11/05/16 00:00 97.6 96 26 108/58 97 Nasal Cannula 3.0 11/05/16 00:00 96 11/04/16 23:00 96 22 118/65 98 Nasal Cannula 3.0 11/04/16 22:00 92 20 122/68 99 Nasal Cannula 3.0 11/04/16 21:00 89 23 120/76 98 Nasal Cannula 3.0 11/04/16 20:15 100 Nasal Cannula 3.0 32 11/04/16 20:15 Nasal Cannula 3.0 32 11/04/16 20:00 97.8 97 27 119/66 99 Nasal Cannula 3.0 11/04/16 20:00 97 11/04/16 19:00 91 28 95/61 100 Nasal Cannula 3.0 Height (Feet): 5 Height (Inches): 3.00 Weight (Pounds): 130 General Appearance: no acute distress Respiratory/Chest: no respiratory distress Cardiovascular: normal rate, regular rhythm Abdomen: normal bowel sounds, soft, non tender, non distended Microbiology Date/Time Source Procedure Growth Status 11/03/16 16:00 Blood Blood Culture - Preliminary NO GROWTH AFTER 24 HOURS Resulted 11/03/16 16:00 Blood Blood Culture - Preliminary NO GROWTH AFTER 24 HOURS Resulted 11/05/16 14:00 Nasopharynx Influenza Types A,B Antigen (SHEILA) - Final Complete Laboratory Tests Test 11/05/16 04:05 11/05/16 09:30 White Blood Count 5.5 K/UL (4.8-10.8) # Red Blood Count 3.47 M/UL (4.70-6.10) L Hemoglobin 11.6 G/DL (14.2-18.0) L Hematocrit 35.4 % (42.0-52.0) L Mean Corpuscular Volume 102 FL (80-99) H Mean Corpuscular Hemoglobin 33.5 PG (27.0-31.0) H Mean Corpuscular Hemoglobin Concent 32.9 G/DL (32.0-36.0) Red Cell Distribution Width 12.2 % (11.6-14.8) Platelet Count 199 K/UL (150-450) Mean Platelet Volume 5.2 FL (6.5-10.1) L Neutrophils (%) (Auto) % (45.0-75.0) Lymphocytes (%) (Auto) % (20.0-45.0) Monocytes (%) (Auto) % (1.0-10.0) Eosinophils (%) (Auto) % (0.0-3.0) Basophils (%) (Auto) % (0.0-2.0) Sodium Level 141 mEQ/L (135-145) Potassium Level 4.6 mEQ/L (3.4-4.9) Chloride Level 98 mEQ/L (98-107) Carbon Dioxide Level 31 mEQ/L (20-30) H Anion Gap 12 (5-15) Blood Urea Nitrogen 27 mg/dL (7-23) H Creatinine 0.9 mg/dL (0.7-1.2) Estimat Glomerular Filtration Rate mL/min (>60) Glucose Level 114 mg/dL (74-106) H Calcium Level 8.6 mg/dL (8.6-10.2) Phosphorus Level 3.1 mg/dL (2.5-4.8) Magnesium Level 2.2 mg/dL (1.7-2.5) Total Bilirubin 0.2 mg/dL (0.0-1.2) Aspartate Amino Transf (AST/SGOT) 22 U/L (5-40) Alanine Aminotransferase (ALT/SGPT) 18 U/L (3-41) Alkaline Phosphatase 48 U/L (40-129) Total Protein 5.3 g/dL (6.6-8.7) L Albumin 3.2 g/dL (3.5-5.2) L Globulin 2.1 g/dL Albumin/Globulin Ratio 1.5 (1.0-2.7) Arterial Blood pH 7.245 (7.350-7.450) Arterial Blood Partial Pressure CO2 75.0 mmHg (35.0-45.0) *H Arterial Blood Partial Pressure O2 105.5 mmHg (75.0-100.0) H Arterial Blood HCO3 32.0 mmol/L (22.0-26.0) H Arterial Blood Oxygen Saturation 96.8 % (92.0-98.0) Arterial Blood Base Excess 2.6 Sam Test Positive Current Medications Medications (Trade) Dose Ordered Sig/Jer Route PRN Reason Start Time Stop Time Status Last Admin Dose Admin Albuterol/ Ipratropium (DuoNeb 0.5-3(2.5)mg/3ml) 3 ml Q4H PRN HHN dyspnea 11/03/16 16:30 11/08/16 16:29 11/05/16 14:43 Dextrose (Dextrose 50%) STAT PRN IV Hypoglycemia 11/03/16 16:30 12/03/16 16:29 Docusate Sodium 100 mg 100 mg TWICE A DAY ORAL 11/05/16 18:00 12/05/16 17:59 11/05/16 13:33 Heparin Sodium (Porcine) (Heparin 5000 units/ml) 5,000 units EVERY 12 HOURS SUBQ 11/03/16 21:00 12/03/16 20:59 11/05/16 09:07 Insulin Aspart (NovoLOG) EVERY 6 HOURS SUBQ 11/04/16 18:00 12/04/16 17:59 11/05/16 17:44 Lorazepam (Ativan 2mg/ml 1ml) 2 mg Q4H PRN IV For Anxiety 11/03/16 16:30 11/10/16 16:29 Methylprednisolone Sodium Succinate (Solu-MEDROL) 60 mg EVERY 6 HOURS IV 11/03/16 18:00 12/03/16 17:59 11/05/16 17:42 Morphine Sulfate (Morphine Sulfate) 2 mg Q4H PRN IVP MODERATE PAIN 4-6 11/03/16 17:35 11/10/16 16:29 Morphine Sulfate (Morphine Sulfate) 4 mg Q4H PRN IVP PAIN 7-10 11/03/16 16:30 11/10/16 16:29 Nitroglycerin (Ntg) 0.4 mg Q5M X 3 DOSES PRN SL Prn Chest Pain 11/03/16 16:30 12/03/16 16:29 Ondansetron HCl 4 mg 4 mg Q6H PRN IVP Nausea & Vomiting 11/03/16 16:30 12/03/16 16:29 11/05/16 08:51 Pantoprazole (Protonix) 40 mg DAILY IV 11/04/16 09:00 12/04/16 08:59 11/05/16 08:51 Piperacillin Sod/ Tazobactam Sod/ Dextrose (Zosyn/D5W) 110 ml @ 27.5 mls/hr EVERY 8 HOURS IVPB 11/03/16 20:00 11/10/16 19:59 11/05/16 14:00 Polyethylene Glycol (Miralax) 17 gm DAILYPRN PRN ORAL Constipation 11/05/16 13:30 12/05/16 13:29 11/05/16 13:34 Sodium Chloride (Sodium Chloride 1000ml bag) 1,000 ml @ 50 mls/hr Q20H IV 11/05/16 13:30 12/05/16 13:29 11/05/16 13:33 Theophylline (Theophylline) 80 mg Q6HR ORAL 11/04/16 12:00 12/04/16 11:59 11/05/16 17:42 SHRUTHI JEREZ November 05, 2016 18:25
--- NOTE | 2016-11-05 20:04 | Cardiology Report ---
APPROVED REPORT EKG Measurement Heart [id number] FL [id number] [id number] Normal sinus rhythm with sinus arrhythmia Normal ECG
[2016-11-06] VITALS (24 sets, daily range): BP systolic 73–169; BP diastolic 50–98
[2016-11-06 04:01] LABS: ABG ALLEN TEST POSITIVE; ABG BASE EXCESS 5.1
[2016-11-06 05:43] LABS: MEAN CORPUSCULAR HEMOGLOBIN 33.6 PG (27.0-31.0); MEAN CORPUSCULAR VOLUME 102 FL (80-99); MEAN PLATELET VOLUME 5.8 FL (6.5-10.1); PLATELET COUNT 184 K/UL (150-450); RED BLOOD COUNT 3.51 M/UL (4.70-6.10); RED CELL DISTRIBUTION WIDTH 12.1 % (11.6-14.8); WHITE BLOOD COUNT 5.2 K/UL (4.8-10.8)
[2016-11-06] MEDS: Piperacillin/Tazobactam 3.375 GM in D5W 110 ML IVPB SCH ×3 (05:46→22:22)
[2016-11-06] MEDS: Solu-MEDROL 125mg Inj IV SCH ×3 (05:47→18:18)
[2016-11-06] MEDS: Theophylline 80mg/15ml ORAL SCH ×3 (05:47→18:18)
[2016-11-06] MEDS: NovoLOG Insulin Flexpen SUBQ SCH ×3 (05:48→18:00)
[2016-11-06 06:19] LABS: ALANINE AMINOTRANSFERASE 16 U/L (3-41); ALBUMIN/GLOBULIN RATIO 1.2 (1.0-2.7); ANION GAP 8 (5-15); ASPARTATE AMINO TRANSFERASE 18 U/L (5-40); CARBON DIOXIDE 32 mEQ/L (20-30); CHLORIDE 100 mEQ/L (98-107); CREATININE 0.9 mg/dL (0.7-1.2); HEMOLYSIS 17; POTASSIUM 4.7 mEQ/L (3.4-4.9); SODIUM 140 mEQ/L (135-145); TOTAL PROTEIN 4.7 g/dL (6.6-8.7)
[2016-11-06] MEDS ORDERED: Diltiazem 25mg/5ml IV PRN (07:45)
[2016-11-06 08:42] LABS: ABG ALLEN TEST POSITIVE; ABG BASE EXCESS 8.4; ABG PCO2 68.6 mmHg (35.0-45.0)
[2016-11-06] MEDS: Docusate 100mg cap ORAL SCH (09:02)
[2016-11-06] MEDS: Pantoprazole Inj IV SCH (09:02)
[2016-11-06] MEDS: Heparin 5000 units/ml inj SUBQ SCH ×2 (09:05→20:54)
--- NOTE | 2016-11-06 10:49 | Infectious Diseases Prog Note ---
Assessment/Plan Assessment/Plan ASSESSMENT: 85 y/o male with: // Acute on chronic respiratory failure SP BiPAP r/o COPD exacerbation vs CAP vs influenza - SCx pending - CXR 11/05: No evidence of acute cardiopulmonary disease. Stable chronic changes - negative: influenza - h/o COPD, restrictive lung disease, thoracoplasty // Afebrile without leukocytosis // Acute encephalopathy - improved - CT Head: No evidence of acute intracranial pathology. 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, chronic microvascular ischemic changes, atrophy // AAA SP stent graft repair // NKDA // Full Code PLAN: - continue empiric zosyn d# 4 / 5 , add Zithromax d# 1 / 5 - taper steroids per pulm - f/u cultures - monitor CBC, temperatures - monitor BMP - monitor CXR - BiPAP prn Subjective Allergies: Coded Allergies: No Known Allergies (Unverified , 03/13/15) Subjective on BiPAP Objective Vital Signs Last 24 Hour Vital Signs Date Time Temp Pulse Resp B/P Pulse Ox O2 Delivery O2 Flow Rate FiO2 11/06/16 10:31 89 18 98 Facial 40 11/06/16 09:00 98.8 93 19 163/77 99 Bi-pap 40 11/06/16 08:35 87 14 100 Facial 40 11/06/16 08:00 102 11/06/16 08:00 99.1 104 21 150/74 98 Bi-pap 40 11/06/16 07:00 92 19 158/68 99 Nasal Cannula 3.0 11/06/16 06:31 91 18 99 Facial 40 11/06/16 06:31 99 Bi-pap 40 11/06/16 06:31 Bi-pap 40 11/06/16 06:00 107 21 156/63 97 Nasal Cannula 3.0 11/06/16 05:03 101 17 100 Facial 40 11/06/16 05:00 100 18 164/65 100 Nasal Cannula 3.0 11/06/16 04:00 97.8 154 20 73/50 100 Nasal Cannula 3.0 11/06/16 04:00 154 11/06/16 04:00 99 29 96/58 98 Nasal Cannula 3.0 11/06/16 03:35 158 19 100 Facial 40 11/06/16 03:00 101 27 99/55 96 Nasal Cannula 3.0 11/06/16 02:00 99 29 96/58 98 Nasal Cannula 3.0 11/06/16 01:00 100 28 96/52 98 Nasal Cannula 3.0 11/06/16 00:00 97.8 105 25 98/58 95 Nasal Cannula 3.0 11/06/16 00:00 119 11/05/16 23:00 106 28 102/60 98 Nasal Cannula 3.0 11/05/16 22:00 105 30 103/55 97 Nasal Cannula 3.0 11/05/16 22:00 99 11/05/16 21:00 109 25 104/56 95 Nasal Cannula 3.0 11/05/16 20:00 98.7 104 28 112/67 98 Nasal Cannula 3.0 11/05/16 19:59 105 24 98 Nasal Cannula 3.0 11/05/16 19:51 Nasal Cannula 3.0 32 11/05/16 19:50 100 Nasal Cannula 3.0 32 11/05/16 19:00 99 30 104/56 98 Nasal Cannula 3.0 11/05/16 18:00 111 22 96/47 93 Nasal Cannula 3.0 11/05/16 17:00 90 21 115/52 98 Nasal Cannula 3.0 11/05/16 16:08 98 11/05/16 16:00 98.5 90 21 101/52 98 Nasal Cannula 3.0 11/05/16 15:00 90 21 107/52 98 Nasal Cannula 3.0 11/05/16 14:54 98 25 100 Nasal Cannula 2.0 11/05/16 14:43 102 23 100 Nasal Cannula 3.0 11/05/16 14:00 89 21 99/55 100 Nasal Cannula 3.0 11/05/16 13:00 86 22 105/49 100 Nasal Cannula 3.0 11/05/16 12:00 98.3 94 22 133/69 100 Nasal Cannula 3.0 11/05/16 12:00 90 11/05/16 11:00 88 22 119/62 100 Bi-pap 35 Height (Feet): 5 Height (Inches): 3.00 Weight (Pounds): 130 HEENT: anicteric Respiratory/Chest: no respiratory distress Cardiovascular: normal rate Abdomen: no organomegaly Neurologic/Psychiatric: no motor/sensory deficits Microbiology Date/Time Source Procedure Growth Status 11/03/16 16:00 Blood Blood Culture - Preliminary NO GROWTH AFTER 48 HOURS Resulted 11/03/16 16:00 Blood Blood Culture - Preliminary NO GROWTH AFTER 48 HOURS Resulted 11/05/16 15:00 Sputum Gram Stain - Final Resulted 11/05/16 15:00 Sputum Sputum Culture - Preliminary Resulted 11/05/16 14:00 Nasopharynx Influenza Types A,B Antigen (SHEILA) - Final Complete 11/03/16 16:00 Nasal Nares MRSA Culture - Final Staphylococcus Aureus - Mrsa Complete 11/03/16 16:00 Rectum VRE Culture - Final Enterococcus Faecalis - Vre Complete Laboratory Tests Test 11/06/16 04:00 11/06/16 05:00 11/06/16 08:25 Arterial Blood pH 7.294 (7.350-7.450) 7.343 (7.350-7.450) Arterial Blood Partial Pressure CO2 71.0 mmHg (35.0-45.0) *H 68.6 mmHg (35.0-45.0) *H Arterial Blood Partial Pressure O2 289.7 mmHg (75.0-100.0) H 128.5 mmHg (75.0-100.0) H Arterial Blood HCO3 33.7 mmol/L (22.0-26.0) H 36.4 mmol/L (22.0-26.0) H Arterial Blood Oxygen Saturation 99.3 % (92.0-98.0) H 98.1 % (92.0-98.0) H Arterial Blood Base Excess 5.1 8.4 Sam Test Positive Positive White Blood Count 5.2 K/UL (4.8-10.8) Red Blood Count 3.51 M/UL (4.70-6.10) L Hemoglobin 11.8 G/DL (14.2-18.0) L Hematocrit 35.7 % (42.0-52.0) L Mean Corpuscular Volume 102 FL (80-99) H Mean Corpuscular Hemoglobin 33.6 PG (27.0-31.0) H Mean Corpuscular Hemoglobin Concent 33.0 G/DL (32.0-36.0) Red Cell Distribution Width 12.1 % (11.6-14.8) Platelet Count 184 K/UL (150-450) Mean Platelet Volume 5.8 FL (6.5-10.1) L Neutrophils (%) (Auto) % (45.0-75.0) Lymphocytes (%) (Auto) % (20.0-45.0) Monocytes (%) (Auto) % (1.0-10.0) Eosinophils (%) (Auto) % (0.0-3.0) Basophils (%) (Auto) % (0.0-2.0) Sodium Level 140 mEQ/L (135-145) Potassium Level 4.7 mEQ/L (3.4-4.9) Chloride Level 100 mEQ/L (98-107) Carbon Dioxide Level 32 mEQ/L (20-30) H Anion Gap 8 (5-15) Blood Urea Nitrogen 24 mg/dL (7-23) H Creatinine 0.9 mg/dL (0.7-1.2) Estimat Glomerular Filtration Rate mL/min (>60) Glucose Level 127 mg/dL (74-106) H Calcium Level 8.0 mg/dL (8.6-10.2) L Phosphorus Level 3.0 mg/dL (2.5-4.8) Magnesium Level 2.0 mg/dL (1.7-2.5) Total Bilirubin 0.2 mg/dL (0.0-1.2) Aspartate Amino Transf (AST/SGOT) 18 U/L (5-40) Alanine Aminotransferase (ALT/SGPT) 16 U/L (3-41) Alkaline Phosphatase 35 U/L (40-129) L Total Protein 4.7 g/dL (6.6-8.7) L Albumin 2.6 g/dL (3.5-5.2) L Globulin 2.1 g/dL Albumin/Globulin Ratio 1.2 (1.0-2.7) Current Medications Medications (Trade) Dose Ordered Sig/Jer Route PRN Reason Start Time Stop Time Status Last Admin Dose Admin Albuterol/ Ipratropium (DuoNeb 0.5-3(2.5)mg/3ml) 3 ml Q4H PRN HHN dyspnea 11/03/16 16:30 11/08/16 16:29 11/05/16 19:58 Dextrose (Dextrose 50%) STAT PRN IV Hypoglycemia 11/03/16 16:30 12/03/16 16:29 Diltiazem HCl (Cardizem) 20 mg EVERY HOUR PRN IV heart rate increase 11/06/16 07:45 12/06/16 07:44 Docusate Sodium (Colace) 100 mg TWICE A DAY ORAL 11/06/16 18:00 12/06/16 17:59 Heparin Sodium (Porcine) (Heparin 5000 units/ml) 5,000 units EVERY 12 HOURS SUBQ 11/03/16 21:00 12/03/16 20:59 11/06/16 09:05 Insulin Aspart (NovoLOG) EVERY 6 HOURS SUBQ 11/04/16 18:00 12/04/16 17:59 11/06/16 05:48 Lorazepam (Ativan 2mg/ml 1ml) 2 mg Q4H PRN IV For Anxiety 11/03/16 16:30 11/10/16 16:29 11/06/16 03:33 Methylprednisolone Sodium Succinate (Solu-MEDROL) 60 mg EVERY 6 HOURS IV 11/03/16 18:00 12/03/16 17:59 11/06/16 05:47 Morphine Sulfate (Morphine Sulfate) 2 mg Q4H PRN IVP MODERATE PAIN 4-6 11/03/16 17:35 11/10/16 16:29 Morphine Sulfate (Morphine Sulfate) 4 mg Q4H PRN IVP PAIN 7-10 11/03/16 16:30 11/10/16 16:29 Nitroglycerin (Ntg) 0.4 mg Q5M X 3 DOSES PRN SL Prn Chest Pain 11/03/16 16:30 12/03/16 16:29 Ondansetron HCl 4 mg 4 mg Q6H PRN IVP Nausea & Vomiting 11/03/16 16:30 12/03/16 16:29 11/05/16 08:51 Pantoprazole (Protonix) 40 mg DAILY IV 11/04/16 09:00 12/04/16 08:59 11/06/16 09:02 Piperacillin Sod/ Tazobactam Sod/ Dextrose (Zosyn/D5W) 110 ml @ 27.5 mls/hr EVERY 8 HOURS IVPB 11/03/16 20:00 11/10/16 19:59 11/06/16 05:46 Polyethylene Glycol 17 gm 17 gm DAILYPRN PRN ORAL Constipation 11/05/16 13:30 12/05/16 13:29 11/05/16 13:34 Sodium Chloride (Sodium Chloride 1000ml bag) 1,000 ml @ 50 mls/hr Q20H IV 11/05/16 13:30 12/05/16 13:29 11/06/16 09:02 Theophylline (Theophylline) 80 mg Q6HR ORAL 11/04/16 12:00 12/04/16 11:59 11/05/16 23:45 DEONTE HASNON M.D. November 06, 2016 10:49
--- NOTE | 2016-11-06 11:08 | Pulmonolgy Critical Care Note ---
Critical Care - Asmt/Plan Problems: (1) Respiratory failure, acute (2) Aspiration pneumonia (3) Encephalopathy acute (4) thoracoplasy (5) Restrictive lung disease Respiratory: monitor respiratory rate, adjust FIO2, CXR Cardiac: continue to monitor HR/BP Renal: F/U I&O, keep IV fluid, check electrolytes Infectious Disease: check cultures, continue antibiotics Gastrointestinal: continue feedings/current rate Endocrine: monitor blood sugar, check TSH, continue sliding scale insulin Hematologic: transfuse if hgb<8.5 Neurologic: PRN Ativan, keep patient comfortable Affect: PRN ativan Prophylaxis: Heparin 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, 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 Discussed with: nurses, consultants, 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 case 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 manager - Objective Last 24 Hour Vital Signs Date Time Temp Pulse Resp B/P Pulse Ox O2 Delivery O2 Flow Rate FiO2 11/06/16 10:58 90 16 100 5.0 40 11/06/16 10:31 89 18 98 Facial 40 11/06/16 10:00 105 19 155/66 100 Nasal Cannula 3.0 11/06/16 09:00 98.8 93 19 163/77 99 Bi-pap 40 11/06/16 08:35 87 14 100 Facial 40 11/06/16 08:00 102 11/06/16 08:00 99.1 104 21 150/74 98 Bi-pap 40 11/06/16 07:00 92 19 158/68 99 Nasal Cannula 3.0 11/06/16 06:31 91 18 99 Facial 40 11/06/16 06:31 99 Bi-pap 40 11/06/16 06:31 Bi-pap 40 11/06/16 06:00 107 21 156/63 97 Nasal Cannula 3.0 11/06/16 05:03 101 17 100 Facial 40 11/06/16 05:00 100 18 164/65 100 Nasal Cannula 3.0 11/06/16 04:00 97.8 154 20 73/50 100 Nasal Cannula 3.0 11/06/16 04:00 154 11/06/16 04:00 99 29 96/58 98 Nasal Cannula 3.0 11/06/16 03:35 158 19 100 Facial 40 11/06/16 03:00 101 27 99/55 96 Nasal Cannula 3.0 11/06/16 02:00 99 29 96/58 98 Nasal Cannula 3.0 11/06/16 01:00 100 28 96/52 98 Nasal Cannula 3.0 11/06/16 00:00 97.8 105 25 98/58 95 Nasal Cannula 3.0 11/06/16 00:00 119 11/05/16 23:00 106 28 102/60 98 Nasal Cannula 3.0 11/05/16 22:00 105 30 103/55 97 Nasal Cannula 3.0 11/05/16 22:00 99 11/05/16 21:00 109 25 104/56 95 Nasal Cannula 3.0 11/05/16 20:00 98.7 104 28 112/67 98 Nasal Cannula 3.0 11/05/16 19:59 105 24 98 Nasal Cannula 3.0 11/05/16 19:51 Nasal Cannula 3.0 32 11/05/16 19:50 100 Nasal Cannula 3.0 32 11/05/16 19:00 99 30 104/56 98 Nasal Cannula 3.0 11/05/16 18:00 111 22 96/47 93 Nasal Cannula 3.0 11/05/16 17:00 90 21 115/52 98 Nasal Cannula 3.0 11/05/16 16:08 98 11/05/16 16:00 98.5 90 21 101/52 98 Nasal Cannula 3.0 11/05/16 15:00 90 21 107/52 98 Nasal Cannula 3.0 11/05/16 14:54 98 25 100 Nasal Cannula 2.0 11/05/16 14:43 102 23 100 Nasal Cannula 3.0 11/05/16 14:00 89 21 99/55 100 Nasal Cannula 3.0 11/05/16 13:00 86 22 105/49 100 Nasal Cannula 3.0 11/05/16 12:00 98.3 94 22 133/69 100 Nasal Cannula 3.0 11/05/16 12:00 90 Status: sedated Condition: critical HEENT: atraumatic Neck: full ROM Lungs: clear Abdomen: soft, non-tender, feeding tube Extremities: edema Decubiti: location Micro: Microbiology Date/Time Source Procedure Growth Status 11/03/16 16:00 Blood Blood Culture - Preliminary NO GROWTH AFTER 48 HOURS Resulted 11/03/16 16:00 Blood Blood Culture - Preliminary NO GROWTH AFTER 48 HOURS Resulted 11/05/16 15:00 Sputum Gram Stain - Final Resulted 11/05/16 15:00 Sputum Sputum Culture - Preliminary Resulted 11/05/16 14:00 Nasopharynx Influenza Types A,B Antigen (SHEILA) - Final Complete 11/03/16 16:00 Nasal Nares MRSA Culture - Final Staphylococcus Aureus - Mrsa Complete 11/03/16 16:00 Rectum VRE Culture - Final Enterococcus Faecalis - Vre Complete Accucheck: 136 Critical Care - Subjective ICU Day: 3 Condition: critical EKG Rhythm: Sinus Rhythm FI02: 40 Sputum Amount: None Tube Feeding Amount: 40 I&O: Intake and Output 11/05/16 11/06/16 19:00 07:00 Intake Total 560.0 ml 744.37 ml Output Total 430 ml 375 ml Balance 130.0 ml 369.37 ml Intake Oral 120 ml IV Total 440.0 ml 744.37 ml Output Urine Total 430 ml 375 ml CXR: no change Labs: Laboratory Tests Test 11/06/16 04:00 11/06/16 05:00 11/06/16 08:25 Arterial Blood pH 7.294 (7.350-7.450) 7.343 (7.350-7.450) Arterial Blood Partial Pressure CO2 71.0 mmHg (35.0-45.0) *H 68.6 mmHg (35.0-45.0) *H Arterial Blood Partial Pressure O2 289.7 mmHg (75.0-100.0) H 128.5 mmHg (75.0-100.0) H Arterial Blood HCO3 33.7 mmol/L (22.0-26.0) H 36.4 mmol/L (22.0-26.0) H Arterial Blood Oxygen Saturation 99.3 % (92.0-98.0) H 98.1 % (92.0-98.0) H Arterial Blood Base Excess 5.1 8.4 Sam Test Positive Positive White Blood Count 5.2 K/UL (4.8-10.8) Red Blood Count 3.51 M/UL (4.70-6.10) L Hemoglobin 11.8 G/DL (14.2-18.0) L Hematocrit 35.7 % (42.0-52.0) L Mean Corpuscular Volume 102 FL (80-99) H Mean Corpuscular Hemoglobin 33.6 PG (27.0-31.0) H Mean Corpuscular Hemoglobin Concent 33.0 G/DL (32.0-36.0) Red Cell Distribution Width 12.1 % (11.6-14.8) Platelet Count 184 K/UL (150-450) Mean Platelet Volume 5.8 FL (6.5-10.1) L Neutrophils (%) (Auto) % (45.0-75.0) Lymphocytes (%) (Auto) % (20.0-45.0) Monocytes (%) (Auto) % (1.0-10.0) Eosinophils (%) (Auto) % (0.0-3.0) Basophils (%) (Auto) % (0.0-2.0) Sodium Level 140 mEQ/L (135-145) Potassium Level 4.7 mEQ/L (3.4-4.9) Chloride Level 100 mEQ/L (98-107) Carbon Dioxide Level 32 mEQ/L (20-30) H Anion Gap 8 (5-15) Blood Urea Nitrogen 24 mg/dL (7-23) H Creatinine 0.9 mg/dL (0.7-1.2) Estimat Glomerular Filtration Rate mL/min (>60) Glucose Level 127 mg/dL (74-106) H Calcium Level 8.0 mg/dL (8.6-10.2) L Phosphorus Level 3.0 mg/dL (2.5-4.8) Magnesium Level 2.0 mg/dL (1.7-2.5) Total Bilirubin 0.2 mg/dL (0.0-1.2) Aspartate Amino Transf (AST/SGOT) 18 U/L (5-40) Alanine Aminotransferase (ALT/SGPT) 16 U/L (3-41) Alkaline Phosphatase 35 U/L (40-129) L Total Protein 4.7 g/dL (6.6-8.7) L Albumin 2.6 g/dL (3.5-5.2) L Globulin 2.1 g/dL Albumin/Globulin Ratio 1.2 (1.0-2.7) MARLYS WYMAN November 06, 2016 11:08
--- NOTE | 2016-11-06 11:13 | Diagnostic Imaging Report ---
Indication: Dyspnea Comparison: 11/05/16 A single view chest radiograph was obtained. Findings: Right upper hemithorax is markedly deformed consistent with a previous thoracoplasty procedure. There is evidence of interstitial edema. There is borderline cardiomegaly. Blunting of the left costophrenic angle is noted consistent with a small effusion versus pleural thickening. The bones are osteopenic. There is no significant radiographic change. Impression: No change from the previous day
[2016-11-06] MEDS: Azithromycin 500 MG in D5W 275 ML IV SCH (13:01)
[2016-11-06] MEDS: Docusate 100mg/10ml Liq ORAL SCH (18:18)
--- NOTE | 2016-11-06 18:49 | Cardiology Report ---
APPROVED REPORT EKG Measurement Heart [id number] Atrial fibrillation with rapid ventricular response Low voltage QRS Possible Lateral infarct, age undetermined Abnormal ECG
[2016-11-07] VITALS (21 sets, daily range): BP systolic 86–164; BP diastolic 45–91
[2016-11-07] MEDS: Theophylline 80mg/15ml ORAL SCH ×4 (00:34→18:11)
[2016-11-07] MEDS: Solu-MEDROL 125mg Inj IV SCH ×3 (00:35→21:33)
[2016-11-07] MEDS: NovoLOG Insulin Flexpen SUBQ SCH ×4 (00:36→18:13)
[2016-11-07] MEDS: DuoNeb 0.5-3(2.5)mg/3ml neb HHN PRN (00:49)
[2016-11-07 05:34] LABS: MEAN CORPUSCULAR HEMOGLOBIN 33.3 PG (27.0-31.0); MEAN CORPUSCULAR HGB CONC 33.1 G/DL (32.0-36.0); MEAN CORPUSCULAR VOLUME 101 FL (80-99); MEAN PLATELET VOLUME 5.9 FL (6.5-10.1); PLATELET COUNT 197 K/UL (150-450); RED BLOOD COUNT 3.92 M/UL (4.70-6.10); RED CELL DISTRIBUTION WIDTH 12.1 % (11.6-14.8); WHITE BLOOD COUNT 4.5 K/UL (4.8-10.8)
[2016-11-07 06:00] LABS: ALANINE AMINOTRANSFERASE 15 U/L (3-41); ALBUMIN/GLOBULIN RATIO 1.5 (1.0-2.7); ANION GAP 8 (5-15); ASPARTATE AMINO TRANSFERASE 15 U/L (5-40); CALCIUM 8.1 mg/dL (8.6-10.2); CARBON DIOXIDE 35 mEQ/L (20-30); CHLORIDE 97 mEQ/L (98-107); CREATININE 0.8 mg/dL (0.7-1.2); HEMOLYSIS 6; MAGNESIUM 2.1 mg/dL (1.7-2.5); PHOSPHORUS 1.8 mg/dL (2.5-4.8); POTASSIUM 4.5 mEQ/L (3.4-4.9); SODIUM 140 mEQ/L (135-145); TOTAL PROTEIN 4.6 g/dL (6.6-8.7)
[2016-11-07] MEDS: Piperacillin/Tazobactam 3.375 GM in D5W 110 ML IVPB SCH ×3 (06:20→21:34)
--- NOTE | 2016-11-07 08:03 | Pulmonolgy Critical Care Note ---
Critical Care - Asmt/Plan Problems: (1) Respiratory failure, acute (2) Aspiration pneumonia (3) Encephalopathy acute (4) thoracoplasy (5) Restrictive lung disease Respiratory: monitor respiratory rate, adjust FIO2 Cardiac: continue pressors, continue to monitor HR/BP Renal: F/U I&O, keep IV fluid, check electrolytes Infectious Disease: check cultures Gastrointestinal: continue feedings/current rate Endocrine: monitor blood sugar Hematologic: transfuse if hgb<8.5 Neurologic: PRN Ativan, keep patient comfortable Affect: PRN ativan Prophylaxis: Protonix Discussed with: nurses, consultants, case hardenerwastewater manager - Objective Last 24 Hour Vital Signs Date Time Temp Pulse Resp B/P Pulse Ox O2 Delivery O2 Flow Rate FiO2 11/07/16 07:00 97 32 144/70 100 Nasal Cannula 3.0 11/07/16 06:30 98 Nasal Cannula 3.0 32 11/07/16 06:30 Nasal Cannula 3.0 32 11/07/16 06:00 100 32 151/81 99 Nasal Cannula 3.0 11/07/16 05:00 101 18 143/85 100 Nasal Cannula 3.0 11/07/16 04:01 98.4 96 18 164/89 100 Nasal Cannula 3.0 11/07/16 04:00 99 11/07/16 04:00 96 18 164/89 100 Nasal Cannula 3.0 11/07/16 04:00 94 14 98 Facial 30 11/07/16 03:00 96 18 104/49 100 Nasal Cannula 3.0 11/07/16 02:00 96 21 86/45 100 Nasal Cannula 3.0 11/07/16 01:00 90 17 152/81 98 Nasal Cannula 3.0 11/07/16 00:51 90 18 100 Facial 30 11/07/16 00:50 90 15 100 Bi-pap 30 11/07/16 00:50 86 18 98 Bi-pap 30 11/07/16 00:00 91 11/07/16 00:00 98.0 91 22 129/74 94 Nasal Cannula 3.0 11/06/16 23:00 93 21 161/91 96 Nasal Cannula 3.0 11/06/16 22:30 95 25 99 Facial 30 11/06/16 22:00 89 12 165/98 98 Nasal Cannula 3.0 11/06/16 21:13 102 30 97 Facial 30 11/06/16 21:00 97 26 123/64 96 Nasal Cannula 3.0 11/06/16 20:00 95 11/06/16 20:00 97.4 95 25 126/75 100 Nasal Cannula 3.0 11/06/16 19:28 Nasal Cannula 2.0 28 11/06/16 19:28 96 Nasal Cannula 2.0 28 11/06/16 19:00 92 18 127/65 100 Nasal Cannula 3.0 11/06/16 18:00 99 18 128/68 100 Nasal Cannula 3.0 11/06/16 17:00 92 18 151/91 100 Nasal Cannula 3.0 11/06/16 16:00 97.9 86 19 169/76 100 Nasal Cannula 3.0 11/06/16 16:00 84 11/06/16 15:00 88 21 138/56 100 Nasal Cannula 5.0 11/06/16 14:46 86 1 100 4.0 36 11/06/16 14:00 92 24 104/56 100 Nasal Cannula 5.0 11/06/16 13:18 90 16 100 5.0 40 11/06/16 13:00 98 24 98/55 100 Nasal Cannula 5.0 11/06/16 12:00 99 11/06/16 12:00 97.9 93 19 106/53 99 Nasal Cannula 5.0 11/06/16 11:00 107 19 130/66 100 Nasal Cannula 5.0 11/06/16 10:58 90 16 100 5.0 40 11/06/16 10:31 89 18 98 Facial 40 11/06/16 10:00 105 19 155/66 100 Bi-pap 40 11/06/16 09:00 98.8 93 19 163/77 99 Bi-pap 40 11/06/16 08:35 87 14 100 Facial 40 Status: awake Condition: critical HEENT: atraumatic Neck: full ROM Heart: HR/BP stable, HR/BP unstable Abdomen: soft, non-tender Extremities: no C/C/E, edema Micro: Microbiology Date/Time Source Procedure Growth Status 11/05/16 15:00 Sputum Gram Stain - Final Resulted 11/05/16 15:00 Sputum Sputum Culture - Preliminary Resulted 11/05/16 14:00 Nasopharynx Influenza Types A,B Antigen (SHEILA) - Final Complete Accucheck: 120 Critical Care - Subjective ROS Limited/Unobtainable: No ICU Day: 5 Condition: critical EKG Rhythm: Sinus Rhythm FI02: 32 Sputum Amount: None Fluids: 1/2 NS 50 cc.hour Tube Feeding Amount: 40 I&O: Intake and Output 11/06/16 11/07/16 19:00 07:00 Intake Total 1190.0 ml 698.75 ml Output Total 645 ml 585 ml Balance 545.0 ml 113.75 ml Intake Oral 150 ml IV Total 1040.0 ml 698.75 ml Output Urine Total 645 ml 585 ml CXR: no change Labs: Laboratory Tests Test 11/06/16 08:25 11/07/16 04:30 Arterial Blood pH 7.343 (7.350-7.450) Arterial Blood Partial Pressure CO2 68.6 mmHg (35.0-45.0) *H Arterial Blood Partial Pressure O2 128.5 mmHg (75.0-100.0) H Arterial Blood HCO3 36.4 mmol/L (22.0-26.0) H Arterial Blood Oxygen Saturation 98.1 % (92.0-98.0) H Arterial Blood Base Excess 8.4 Sam Test Positive White Blood Count 4.5 K/UL (4.8-10.8) L Red Blood Count 3.92 M/UL (4.70-6.10) L Hemoglobin 13.1 G/DL (14.2-18.0) L Hematocrit 39.5 % (42.0-52.0) L Mean Corpuscular Volume 101 FL (80-99) H Mean Corpuscular Hemoglobin 33.3 PG (27.0-31.0) H Mean Corpuscular Hemoglobin Concent 33.1 G/DL (32.0-36.0) Red Cell Distribution Width 12.1 % (11.6-14.8) Platelet Count 197 K/UL (150-450) Mean Platelet Volume 5.9 FL (6.5-10.1) L Neutrophils (%) (Auto) % (45.0-75.0) Lymphocytes (%) (Auto) % (20.0-45.0) Monocytes (%) (Auto) % (1.0-10.0) Eosinophils (%) (Auto) % (0.0-3.0) Basophils (%) (Auto) % (0.0-2.0) Sodium Level 140 mEQ/L (135-145) Potassium Level 4.5 mEQ/L (3.4-4.9) Chloride Level 97 mEQ/L (98-107) L Carbon Dioxide Level 35 mEQ/L (20-30) H Anion Gap 8 (5-15) Blood Urea Nitrogen 22 mg/dL (7-23) Creatinine 0.8 mg/dL (0.7-1.2) Estimat Glomerular Filtration Rate mL/min (>60) Glucose Level 141 mg/dL (74-106) H Calcium Level 8.1 mg/dL (8.6-10.2) L Phosphorus Level 1.8 mg/dL (2.5-4.8) L Magnesium Level 2.1 mg/dL (1.7-2.5) Total Bilirubin 0.3 mg/dL (0.0-1.2) Aspartate Amino Transf (AST/SGOT) 15 U/L (5-40) Alanine Aminotransferase (ALT/SGPT) 15 U/L (3-41) Alkaline Phosphatase 35 U/L (40-129) L Total Protein 4.6 g/dL (6.6-8.7) L Albumin 2.8 g/dL (3.5-5.2) L Globulin 1.8 g/dL Albumin/Globulin Ratio 1.5 (1.0-2.7) MARLYS WYMAN November 07, 2016 08:03
[2016-11-07 08:51] LABS: ABG ALLEN TEST POSITIVE; ABG BASE EXCESS 8.6; ABG PCO2 67.1 mmHg (35.0-45.0)
[2016-11-07] MEDS: Pantoprazole Inj IV SCH (09:00)
[2016-11-07] MEDS: Docusate 100mg/10ml Liq ORAL SCH ×2 (09:00→18:00)
[2016-11-07] MEDS ORDERED: Sodium Phosphate 20 MM in NS 275 ML IV ONE (10:00)
[2016-11-07] MEDS: Heparin 5000 units/ml inj SUBQ SCH ×2 (10:11→21:31)
--- NOTE | 2016-11-07 12:14 | Infectious Diseases Prog Note ---
Assessment/Plan Assessment/Plan ASSESSMENT: 85 y/o male with: // Acute on chronic respiratory failure SP BiPAP r/o COPD exacerbation vs CAP vs influenza - SCx : Nl Fl and yeast ( colonizer ) - CXR 11/05: No evidence of acute cardiopulmonary disease. Stable chronic changes - negative: influenza - h/o COPD, restrictive lung disease, thoracoplasty // Afebrile without leukocytosis // Acute encephalopathy - improved - CT Head: No evidence of acute intracranial pathology. 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, chronic microvascular ischemic changes, atrophy // AAA SP stent graft repair // NKDA // Full Code PLAN: - continue Zithromax d# 2 / 5 , DC Zosyn d# 5 / 5 - taper steroids per pulm - f/u cultures - monitor CBC, temperatures - monitor BMP - monitor CXR - BiPAP prn Subjective Constitutional: Denies: anorexia, chills, drenching sweats, fatigue, fever, no symptoms, other Allergies: Coded Allergies: No Known Allergies (Unverified , 03/13/15) Subjective on BiPAP Objective Vital Signs Last 24 Hour Vital Signs Date Time Temp Pulse Resp B/P Pulse Ox O2 Delivery O2 Flow Rate FiO2 11/07/16 10:00 100 25 135/91 98 Nasal Cannula 3.0 11/07/16 09:00 106 30 115/63 100 Nasal Cannula 3.0 11/07/16 08:00 98.0 101 27 136/91 100 Nasal Cannula 3.0 11/07/16 08:00 106 11/07/16 07:00 97 32 144/70 100 Nasal Cannula 3.0 11/07/16 06:30 98 Nasal Cannula 3.0 32 11/07/16 06:30 Nasal Cannula 3.0 32 11/07/16 06:00 100 32 151/81 99 Nasal Cannula 3.0 11/07/16 05:00 101 18 143/85 100 Nasal Cannula 3.0 11/07/16 04:01 98.4 96 18 164/89 100 Nasal Cannula 3.0 11/07/16 04:00 99 11/07/16 04:00 96 18 164/89 100 Nasal Cannula 3.0 11/07/16 04:00 94 14 98 Facial 30 11/07/16 03:00 96 18 104/49 100 Nasal Cannula 3.0 11/07/16 02:00 96 21 86/45 100 Nasal Cannula 3.0 11/07/16 01:00 90 17 152/81 98 Nasal Cannula 3.0 11/07/16 00:51 90 18 100 Facial 30 11/07/16 00:50 90 15 100 Bi-pap 30 11/07/16 00:50 86 18 98 Bi-pap 30 11/07/16 00:00 91 11/07/16 00:00 98.0 91 22 129/74 94 Nasal Cannula 3.0 11/06/16 23:00 93 21 161/91 96 Nasal Cannula 3.0 11/06/16 22:30 95 25 99 Facial 30 11/06/16 22:00 89 12 165/98 98 Nasal Cannula 3.0 11/06/16 21:13 102 30 97 Facial 30 11/06/16 21:00 97 26 123/64 96 Nasal Cannula 3.0 11/06/16 20:00 95 11/06/16 20:00 97.4 95 25 126/75 100 Nasal Cannula 3.0 11/06/16 19:28 Nasal Cannula 2.0 28 11/06/16 19:28 96 Nasal Cannula 2.0 28 11/06/16 19:00 92 18 127/65 100 Nasal Cannula 3.0 11/06/16 18:00 99 18 128/68 100 Nasal Cannula 3.0 11/06/16 17:00 92 18 151/91 100 Nasal Cannula 3.0 11/06/16 16:00 97.9 86 19 169/76 100 Nasal Cannula 3.0 11/06/16 16:00 84 11/06/16 15:00 88 21 138/56 100 Nasal Cannula 5.0 11/06/16 14:46 86 1 100 4.0 36 11/06/16 14:00 92 24 104/56 100 Nasal Cannula 5.0 11/06/16 13:18 90 16 100 5.0 40 11/06/16 13:00 98 24 98/55 100 Nasal Cannula 5.0 Height (Feet): 5 Height (Inches): 3.00 Weight (Pounds): 130 HEENT: atraumatic Respiratory/Chest: no respiratory distress Cardiovascular: regularly irregular Abdomen: no organomegaly Microbiology Date/Time Source Procedure Growth Status 11/05/16 15:00 Sputum Gram Stain - Final Resulted 11/05/16 15:00 Sputum Culture - Preliminary Yeast Species Usual Respiratory Liv Resulted 11/05/16 14:00 Nasopharynx Influenza Types A,B Antigen (SHEILA) - Final Complete Laboratory Tests Test 11/07/16 04:30 11/07/16 08:42 White Blood Count 4.5 K/UL (4.8-10.8) L Red Blood Count 3.92 M/UL (4.70-6.10) L Hemoglobin 13.1 G/DL (14.2-18.0) L Hematocrit 39.5 % (42.0-52.0) L Mean Corpuscular Volume 101 FL (80-99) H Mean Corpuscular Hemoglobin 33.3 PG (27.0-31.0) H Mean Corpuscular Hemoglobin Concent 33.1 G/DL (32.0-36.0) Red Cell Distribution Width 12.1 % (11.6-14.8) Platelet Count 197 K/UL (150-450) Mean Platelet Volume 5.9 FL (6.5-10.1) L Neutrophils (%) (Auto) % (45.0-75.0) Lymphocytes (%) (Auto) % (20.0-45.0) Monocytes (%) (Auto) % (1.0-10.0) Eosinophils (%) (Auto) % (0.0-3.0) Basophils (%) (Auto) % (0.0-2.0) Sodium Level 140 mEQ/L (135-145) Potassium Level 4.5 mEQ/L (3.4-4.9) Chloride Level 97 mEQ/L (98-107) L Carbon Dioxide Level 35 mEQ/L (20-30) H Anion Gap 8 (5-15) Blood Urea Nitrogen 22 mg/dL (7-23) Creatinine 0.8 mg/dL (0.7-1.2) Estimat Glomerular Filtration Rate mL/min (>60) Glucose Level 141 mg/dL (74-106) H Calcium Level 8.1 mg/dL (8.6-10.2) L Phosphorus Level 1.8 mg/dL (2.5-4.8) L Magnesium Level 2.1 mg/dL (1.7-2.5) Total Bilirubin 0.3 mg/dL (0.0-1.2) Aspartate Amino Transf (AST/SGOT) 15 U/L (5-40) Alanine Aminotransferase (ALT/SGPT) 15 U/L (3-41) Alkaline Phosphatase 35 U/L (40-129) L Total Protein 4.6 g/dL (6.6-8.7) L Albumin 2.8 g/dL (3.5-5.2) L Globulin 1.8 g/dL Albumin/Globulin Ratio 1.5 (1.0-2.7) Arterial Blood pH 7.350 (7.350-7.450) Arterial Blood Partial Pressure CO2 67.1 mmHg (35.0-45.0) *H Arterial Blood Partial Pressure O2 103.5 mmHg (75.0-100.0) H Arterial Blood HCO3 36.6 mmol/L (22.0-26.0) H Arterial Blood Oxygen Saturation 97.2 % (92.0-98.0) Arterial Blood Base Excess 8.6 Sam Test Positive Current Medications Medications (Trade) Dose Ordered Sig/Jer Route PRN Reason Start Time Stop Time Status Last Admin Dose Admin Albuterol/ Ipratropium (DuoNeb 0.5-3(2.5)mg/3ml) 3 ml Q4H PRN HHN dyspnea 11/03/16 16:30 11/08/16 16:29 11/07/16 00:49 Azithromycin/ Dextrose (Zithromax/D5W) 275 ml @ 275 mls/hr Q24HRS IV 11/06/16 13:00 11/12/16 13:59 11/06/16 13:01 Dextrose (Dextrose 50%) STAT PRN IV Hypoglycemia 11/03/16 16:30 12/03/16 16:29 Diltiazem HCl (Cardizem) 20 mg EVERY HOUR PRN IV heart rate increase 11/06/16 07:45 12/06/16 07:44 Docusate Sodium 100 mg 100 mg TWICE A DAY ORAL 11/06/16 18:00 12/06/16 17:59 11/07/16 09:00 Heparin Sodium (Porcine) (Heparin 5000 units/ml) 5,000 units EVERY 12 HOURS SUBQ 11/03/16 21:00 12/03/16 20:59 11/07/16 10:11 Insulin Aspart (NovoLOG) EVERY 6 HOURS SUBQ 11/04/16 18:00 6/12/17 17:59 11/07/16 06:26 Lorazepam (Ativan 2mg/ml 1ml) 2 mg Q4H PRN IV For Anxiety 11/03/16 16:30 11/10/16 16:29 11/06/16 03:33 Methylprednisolone Sodium Succinate 60 mg 60 mg EVERY 12 HOURS IV 11/07/16 21:00 12/07/16 20:59 Morphine Sulfate (Morphine Sulfate) 2 mg Q4H PRN IVP MODERATE PAIN 4-6 11/03/16 17:35 11/10/16 16:29 Morphine Sulfate (Morphine Sulfate) 4 mg Q4H PRN IVP PAIN 7-10 11/03/16 16:30 11/10/16 16:29 Nitroglycerin (Ntg) 0.4 mg Q5M X 3 DOSES PRN SL Prn Chest Pain 11/03/16 16:30 12/03/16 16:29 Ondansetron HCl 4 mg 4 mg Q6H PRN IVP Nausea & Vomiting 11/03/16 16:30 12/03/16 16:29 11/05/16 08:51 Pantoprazole (Protonix) 40 mg DAILY IV 11/04/16 09:00 12/04/16 08:59 11/07/16 09:00 Piperacillin Sod/ Tazobactam Sod/ Dextrose (Zosyn/D5W) 110 ml @ 27.5 mls/hr EVERY 8 HOURS IVPB 11/03/16 20:00 11/10/16 19:59 11/07/16 06:20 Polyethylene Glycol 17 gm 17 gm DAILYPRN PRN ORAL Constipation 11/05/16 13:30 12/05/16 13:29 11/05/16 13:34 Sodium Chloride (Sodium Chloride 1000ml bag) 1,000 ml @ 50 mls/hr Q20H IV 11/05/16 13:30 12/05/16 13:29 11/07/16 06:20 Sodium Phosphate/ Sodium Chloride (NaPO4/Sodium Chloride) 281.6667 ml @ 46.9 mls/hr ONCE ONCE IV 11/07/16 10:00 11/07/16 16:00 11/07/16 10:11 Theophylline (Theophylline) 80 mg Q6HR ORAL 11/04/16 12:00 12/04/16 11:59 11/07/16 06:20 DEONTE HANSON M.D. November 07, 2016 12:14
[2016-11-07] MEDS: Azithromycin 500 MG in D5W 275 ML IV SCH (13:30)
--- NOTE | 2016-11-07 13:35 | Diagnostic Imaging Report ---
Indications: DYSPNEA Technique: Portal AP chest Findings: Comparison: 11/06/2016 Chronic deformity right upper rib cage, chronic parenchymal disease and volume loss underlying right upper lung, increased interstitial markings throughout remainder of both lungs, left basal pleural effusion persists, unchanged. Right basal pleural effusion less evident. Not obscured portions of cardiac mediastinal silhouette stable. No new abnormality identified. IMPRESSION: Improvement in versus decrease conspicuity of right pleural effusion Stable bilateral interstitial disease/infiltrates, left pleural effusion Stable chronic right upper hemithoracic lung and rib cage changes
[2016-11-07] MEDS ORDERED: Nitroglycerin Subl 0.4mg tab (Bottle Of 25) SL PRN (18:30)
[2016-11-07] MEDS ORDERED: Morphine Sulfate 4mg/ml Inj IVP PRN (19:00)
[2016-11-07] MEDS ORDERED: LORazepam Inj 2mg/ml 1ml IV PRN (19:00)
[2016-11-07] MEDS ORDERED: Miralax 17gm pkt ORAL PRN (19:00)
[2016-11-07] MEDS ORDERED: Morphine Sulfate 2mg/ml Inj IVP PRN (19:00)
[2016-11-07] MEDS ORDERED: DuoNeb 0.5-3(2.5)mg/3ml neb HHN PRN (19:00)
[2016-11-07] MEDS ORDERED: Solu-MEDROL 125mg Inj IV SCH (21:00)
[2016-11-07] MEDS: Diltiazem 25mg/5ml IV PRN (21:42)
[2016-11-08] VITALS: BP 102/68
[2016-11-08 04:00] VITALS: BP 100/51
[2016-11-08] MEDS: Theophylline 80mg/15ml ORAL SCH ×4 (04:05→17:36)
[2016-11-08 05:28] LABS: MEAN CORPUSCULAR HEMOGLOBIN 33.5 PG (27.0-31.0); MEAN CORPUSCULAR HGB CONC 32.7 G/DL (32.0-36.0); MEAN CORPUSCULAR VOLUME 102 FL (80-99); MEAN PLATELET VOLUME 5.7 FL (6.5-10.1); PLATELET COUNT 206 K/UL (150-450); RED BLOOD COUNT 3.87 M/UL (4.70-6.10); RED CELL DISTRIBUTION WIDTH 11.9 % (11.6-14.8); WHITE BLOOD COUNT 7.7 K/UL (4.8-10.8)
[2016-11-08 05:48] LABS: ALANINE AMINOTRANSFERASE 15 U/L (3-41); ALBUMIN/GLOBULIN RATIO 1.7 (1.0-2.7); ANION GAP 8 (5-15); ASPARTATE AMINO TRANSFERASE 19 U/L (5-40); CALCIUM 8.3 mg/dL (8.6-10.2); CARBON DIOXIDE 37 mEQ/L (20-30); CHLORIDE 94 mEQ/L (98-107); CREATININE 0.9 mg/dL (0.7-1.2); HEMOLYSIS 7; MAGNESIUM 2.4 mg/dL (1.7-2.5); PHOSPHORUS 2.6 mg/dL (2.5-4.8); POTASSIUM 4.3 mEQ/L (3.4-4.9); SODIUM 139 mEQ/L (135-145); TOTAL PROTEIN 4.7 g/dL (6.6-8.7)
[2016-11-08] MEDS: Piperacillin/Tazobactam 3.375 GM in D5W 110 ML IVPB SCH (05:50)
[2016-11-08] MEDS: NovoLOG Insulin Flexpen SUBQ SCH ×4 (06:00→17:36)
[2016-11-08 07:58] VITALS: BP 103/67
[2016-11-08] MEDS: Docusate 100mg/10ml Liq ORAL SCH ×2 (08:41→17:37)
[2016-11-08] MEDS: Pantoprazole Inj IV SCH (08:42)
[2016-11-08] MEDS: Solu-MEDROL 125mg Inj IV SCH ×2 (08:43→20:51)
[2016-11-08] MEDS: Diltiazem 25mg/5ml IV PRN ×3 (08:54→20:52)
[2016-11-08] MEDS: Heparin 5000 units/ml inj SUBQ SCH ×2 (09:00→20:53)
[2016-11-08 09:36] LABS: BAND NEUTROPHILS % (MANUAL) 1 % (0-8); LYMPHOCYTES % (MANUAL) 2 % (20-45); NEUTROPHILS % (MANUAL) 94 % (45-75); TOTAL CELLS COUNTED 100
[2016-11-08 09:37] LABS: BASOPHILS % (MANUAL) 0 % (0-2); EOSINOPHILS % (MANUAL) 0 % (0-3); MACROCYTES 1+; PLATELET ESTIMATE ADEQUATE; PLATELET MORPHOLOGY NORMAL
--- NOTE | 2016-11-08 11:27 | Diagnostic Imaging Report ---
Indication: Dyspnea Comparison: 11/07/16 A single view chest radiograph was obtained. Findings: Left pleural effusion again demonstrated. Interstitial edema may be present. Heart size is stable. Impression: No change from the prior day
[2016-11-08 11:28] LABS: ABG ALLEN TEST POSITIVE; ABG BASE EXCESS 7.7; ABG PCO2 68.2 mmHg (35.0-45.0)
[2016-11-08 12:00] VITALS: BP 103/63
--- NOTE | 2016-11-08 12:07 | Pulmonology Progress Note ---
Assessment/Plan Problems: (1) Respiratory failure, acute (2) Aspiration pneumonia (3) Restrictive lung disease (4) Encephalopathy acute (5) thoracoplasy Assessment/Plan improving continue respiratory treatment pt/ot swallow study noted check labs in am Subjective ROS Limited/Unobtainable: No Constitutional: Reports: no symptoms HEENT: Repors: no symptoms Respiratory: Reports: no symptoms Allergies: Coded Allergies: No Known Allergies (Unverified , 03/13/15) Objective Last 24 Hour Vital Signs Date Time Temp Pulse Resp B/P Pulse Ox O2 Delivery O2 Flow Rate FiO2 11/08/16 08:54 170 103/67 11/08/16 08:00 145 11/08/16 07:58 97.7 84 20 103/67 94 Nasal Cannula 2.0 11/08/16 04:00 98.9 160 24 100/51 95 Nasal Cannula 3.0 11/08/16 03:52 107 11/08/16 03:51 2.0 28 11/08/16 00:39 95 30 93 Facial 30 11/08/16 00:00 120 11/08/16 00:00 98.2 86 14 102/68 92 Bi-pap 11/08/16 00:00 98.2 86 14 102/68 92 Bi-pap 30 11/07/16 22:30 96 2.0 28 11/07/16 21:42 140 103/61 11/07/16 20:00 98.7 82 24 103/61 94 Nasal Cannula 2.0 11/07/16 20:00 128 11/07/16 19:30 Nasal Cannula 3.0 32 11/07/16 19:30 98 Nasal Cannula 3.0 32 11/07/16 18:00 113 31 146/78 100 Nasal Cannula 3.0 11/07/16 17:00 121 28 104/46 93 Nasal Cannula 3.0 11/07/16 16:00 98.1 120 27 114/65 95 Nasal Cannula 3.0 11/07/16 16:00 130 11/07/16 15:00 120 28 120/82 97 Nasal Cannula 3.0 11/07/16 14:00 101 25 121/77 98 Nasal Cannula 3.0 11/07/16 13:00 99 18 132/71 100 Nasal Cannula 3.0 Intake and Output 11/07/16 11/08/16 19:00 07:00 Intake Total 1780.0 ml 650.41 ml Output Total 515 ml 400 ml Balance 1265.0 ml 250.41 ml Intake Oral 580 ml IV Total 1200.0 ml 650.41 ml Output Urine Total 515 ml 400 ml # Bowel Movements 1 General Appearance: cachetic HEENT: normocephalic, atraumatic Respiratory/Chest: chest wall non-tender, lungs clear Cardiovascular: normal peripheral pulses, normal rate Abdomen: normal bowel sounds, soft, non tender Genitourinary: normal external genitalia Extremities: no cyanosis Skin: no rash 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, no motor/sensory deficits Lymphatic: no neck adenopathy Microbiology Date/Time Source Procedure Growth Status 11/05/16 15:00 Sputum Gram Stain - Final Complete 11/05/16 15:00 Sputum Culture - Final Meghan Tropicalis Usual Respiratory Liv Complete 11/05/16 14:00 Nasopharynx Influenza Types A,B Antigen (SHEILA) - Final Complete Laboratory Tests 11/08/16 03:20: White Blood Count 7.7#, Red Blood Count 3.87L, Hemoglobin 13.0L, Hematocrit 39.6L, Mean Corpuscular Volume 102H, Mean Corpuscular Hemoglobin 33.5H, Mean Corpuscular Hemoglobin Concent 32.7, Red Cell Distribution Width 11.9, Platelet Count 206, Mean Platelet Volume 5.7L, Neutrophils (%) (Auto) , Lymphocytes (%) ( Auto) , Monocytes (%) (Auto) , Eosinophils (%) (Auto) , Basophils (%) (Auto) , Differential Total Cells Counted 100, Neutrophils % (Manual) 94H, Lymphocytes % (Manual) 2L, Monocytes % (Manual) 3, Eosinophils % (Manual) 0, Basophils % ( Manual) 0, Band Neutrophils 1, Platelet Estimate Adequate, Platelet Morphology Normal, Macrocytosis 1+, Sodium Level 139, Potassium Level 4.3, Chloride Level 94L, Carbon Dioxide Level 37H, Anion Gap 8, Blood Urea Nitrogen 29H, Creatinine 0.9, Estimat Glomerular Filtration Rate , Glucose Level 115H, Calcium Level 8.3L , Phosphorus Level 2.6, Magnesium Level 2.4, Total Bilirubin 0.4, Aspartate Amino Transf (AST/SGOT) 19, Alanine Aminotransferase (ALT/SGPT) 15, Alkaline Phosphatase 33L, Total Protein 4.7L, Albumin 3.0L, Globulin 1.7, Albumin/ Globulin Ratio 1.7 11/08/16 11:20: Arterial Blood pH 7.340L, Arterial Blood Partial Pressure CO2 68.2*H, Arterial Blood Partial Pressure O2 87.8, Arterial Blood HCO3 36.0H, Arterial Blood Oxygen Saturation 95.8, Arterial Blood Base Excess 7.7, Sam Test Positive Current Medications Medications (Trade) Dose Ordered Sig/Jer Route PRN Reason Start Time Stop Time Status Last Admin Dose Admin Albuterol/ Ipratropium (DuoNeb 0.5-3(2.5)mg/3ml) 3 ml Q4H PRN HHN dyspnea 11/07/16 19:00 11/12/16 18:59 Azithromycin 500 mg/Dextrose 275 ml @ 275 mls/hr Q24HRS IV 11/08/16 13:00 11/12/16 13:01 Dextrose (Dextrose 50%) STAT PRN IV Hypoglycemia 11/07/16 19:00 12/07/16 18:59 Diltiazem HCl (Cardizem) 20 mg Q1H PRN IV HR > 120 11/07/16 19:00 12/07/16 18:59 11/08/16 08:54 Docusate Sodium (Colace) 100 mg TWICE A DAY ORAL 11/08/16 09:00 12/08/16 08:59 11/08/16 08:41 Heparin Sodium (Porcine) (Heparin 5000 units/ml) 5,000 units EVERY 12 HOURS SUBQ 11/07/16 21:00 12/07/16 20:59 11/07/16 21:31 Insulin Aspart (NovoLOG) EVERY 6 HOURS SUBQ 11/08/16 00:00 12/08/16 00:00 11/08/16 11:41 Lorazepam (Ativan 2mg/ml 1ml) 2 mg Q4H PRN IV For Anxiety 11/07/16 19:00 11/14/16 18:59 Methylprednisolone Sodium Succinate (Solu-MEDROL) 60 mg EVERY 12 HOURS IV 11/07/16 21:00 12/07/16 20:59 11/08/16 08:43 Morphine Sulfate (Morphine Sulfate) 2 mg Q4H PRN IVP MODERATE PAIN 4-6 11/07/16 19:00 11/14/16 18:59 Morphine Sulfate (Morphine Sulfate) 4 mg Q4H PRN IVP PAIN 7-10 11/07/16 19:00 11/14/16 18:59 Nitroglycerin (Ntg) 0.4 mg Q5M X 3 DOSES PRN SL Prn Chest Pain 11/07/16 18:30 12/07/16 18:29 Ondansetron HCl (Zofran) 4 mg Q6H PRN IVP Nausea & Vomiting 11/07/16 19:00 12/07/16 18:59 Pantoprazole (Protonix) 40 mg DAILY IV 11/08/16 09:00 12/08/16 08:59 11/08/16 08:42 Piperacillin Sod/ Tazobactam Sod/ Dextrose (Zosyn/D5W) 110 ml @ 27.5 mls/hr EVERY 8 HOURS IVPB 11/07/16 22:00 11/12/16 01:00 11/08/16 05:50 Polyethylene Glycol (Miralax) 17 gm DAILYPRN PRN ORAL Constipation 11/07/16 19:00 12/07/16 18:59 Sodium Chloride 1,000 ml @ 50 mls/hr Q20H IV 11/07/16 19:30 12/07/16 19:29 11/07/16 20:50 Theophylline (Theophylline) 80 mg Q6HR ORAL 11/08/16 00:00 12/08/16 00:00 11/08/16 04:05 MARLYS WYMAN November 08, 2016 12:07
[2016-11-08] MEDS: Azithromycin 500 MG in D5W 275 ML IV SCH (12:32)
[2016-11-08 16:00] VITALS: BP 107/66
--- NOTE | 2016-11-08 18:50 | Infectious Diseases Prog Note ---
Assessment/Plan Assessment/Plan ASSESSMENT: 85 y/o male with: // Acute on chronic respiratory failure SP BiPAP r/o COPD exacerbation vs CAP vs influenza - SCx : Nl Fl and yeast ( colonizer ) - CXR 11/05: No evidence of acute cardiopulmonary disease. Stable chronic changes - negative: influenza - h/o COPD, restrictive lung disease, thoracoplasty // Afebrile without leukocytosis // Acute encephalopathy - improved - CT Head: No evidence of acute intracranial pathology. 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, chronic microvascular ischemic changes, atrophy // AAA SP stent graft repair // NKDA // Full Code PLAN: - continue Zithromax d# 3 / 5 ( 11/07 SP Zosyn d# / ) - taper steroids per pulm - monitor CBC, temperatures - monitor BMP - monitor CXR - BiPAP prn Subjective Allergies: Coded Allergies: No Known Allergies (Unverified , 03/13/15) Subjective afebrile Objective Vital Signs Last 24 Hour Vital Signs Date Time Temp Pulse Resp B/P Pulse Ox O2 Delivery O2 Flow Rate FiO2 11/08/16 17:00 Nasal Cannula 2.0 28 11/08/16 17:00 97 Nasal Cannula 2.0 28 11/08/16 16:00 97.7 92 18 107/66 97 Nasal Cannula 3.0 11/08/16 16:00 101 11/08/16 14:20 130 103/63 11/08/16 12:07 98 11/08/16 12:00 97.2 87 18 103/63 92 Nasal Cannula 2.0 11/08/16 08:54 170 103/67 11/08/16 08:00 145 11/08/16 07:58 97.7 84 20 103/67 94 Nasal Cannula 2.0 11/08/16 04:00 98.9 160 24 100/51 95 Nasal Cannula 3.0 11/08/16 03:52 107 11/08/16 03:51 2.0 28 11/08/16 00:39 95 30 93 Facial 30 11/08/16 00:00 120 11/08/16 00:00 98.2 86 14 102/68 92 Bi-pap 11/08/16 00:00 98.2 86 14 102/68 92 Bi-pap 30 11/07/16 22:30 96 2.0 28 11/07/16 21:42 140 103/61 11/07/16 20:00 98.7 82 24 103/61 94 Nasal Cannula 2.0 11/07/16 20:00 128 11/07/16 19:30 Nasal Cannula 3.0 32 11/07/16 19:30 98 Nasal Cannula 3.0 32 Height (Feet): 5 Height (Inches): 3.00 Weight (Pounds): 130 HEENT: mucous membranes moist Respiratory/Chest: respiratory distress Cardiovascular: no JVD Abdomen: no scars Laboratory Tests Test 11/08/16 03:20 11/08/16 11:20 White Blood Count 7.7 K/UL (4.8-10.8) # Red Blood Count 3.87 M/UL (4.70-6.10) L Hemoglobin 13.0 G/DL (14.2-18.0) L Hematocrit 39.6 % (42.0-52.0) L Mean Corpuscular Volume 102 FL (80-99) H Mean Corpuscular Hemoglobin 33.5 PG (27.0-31.0) H Mean Corpuscular Hemoglobin Concent 32.7 G/DL (32.0-36.0) Red Cell Distribution Width 11.9 % (11.6-14.8) Platelet Count 206 K/UL (150-450) Mean Platelet Volume 5.7 FL (6.5-10.1) L Neutrophils (%) (Auto) % (45.0-75.0) Lymphocytes (%) (Auto) % (20.0-45.0) Monocytes (%) (Auto) % (1.0-10.0) Eosinophils (%) (Auto) % (0.0-3.0) Basophils (%) (Auto) % (0.0-2.0) Differential Total Cells Counted 100 Neutrophils % (Manual) 94 % (45-75) H Lymphocytes % (Manual) 2 % (20-45) L Monocytes % (Manual) 3 % (1-10) Eosinophils % (Manual) 0 % (0-3) Basophils % (Manual) 0 % (0-2) Band Neutrophils 1 % (0-8) Platelet Estimate Adequate Platelet Morphology Normal Macrocytosis 1+ Sodium Level 139 mEQ/L (135-145) Potassium Level 4.3 mEQ/L (3.4-4.9) Chloride Level 94 mEQ/L (98-107) L Carbon Dioxide Level 37 mEQ/L (20-30) H Anion Gap 8 (5-15) Blood Urea Nitrogen 29 mg/dL (7-23) H Creatinine 0.9 mg/dL (0.7-1.2) Estimat Glomerular Filtration Rate mL/min (>60) Glucose Level 115 mg/dL (74-106) H Calcium Level 8.3 mg/dL (8.6-10.2) L Phosphorus Level 2.6 mg/dL (2.5-4.8) Magnesium Level 2.4 mg/dL (1.7-2.5) Total Bilirubin 0.4 mg/dL (0.0-1.2) Aspartate Amino Transf (AST/SGOT) 19 U/L (5-40) Alanine Aminotransferase (ALT/SGPT) 15 U/L (3-41) Alkaline Phosphatase 33 U/L (40-129) L Total Protein 4.7 g/dL (6.6-8.7) L Albumin 3.0 g/dL (3.5-5.2) L Globulin 1.7 g/dL Albumin/Globulin Ratio 1.7 (1.0-2.7) Arterial Blood pH 7.340 (7.350-7.450) Arterial Blood Partial Pressure CO2 68.2 mmHg (35.0-45.0) *H Arterial Blood Partial Pressure O2 87.8 mmHg (75.0-100.0) Arterial Blood HCO3 36.0 mmol/L (22.0-26.0) H Arterial Blood Oxygen Saturation 95.8 % (92.0-98.0) Arterial Blood Base Excess 7.7 Sam Test Positive Current Medications Medications (Trade) Dose Ordered Sig/Jer Route PRN Reason Start Time Stop Time Status Last Admin Dose Admin Albuterol/ Ipratropium (DuoNeb 0.5-3(2.5)mg/3ml) 3 ml Q4H PRN HHN dyspnea 11/07/16 19:00 11/12/16 18:59 Azithromycin 500 mg/Dextrose 275 ml @ 275 mls/hr Q24HRS IV 11/08/16 13:00 11/12/16 13:01 11/08/16 12:32 Dextrose (Dextrose 50%) STAT PRN IV Hypoglycemia 11/07/16 19:00 12/07/16 18:59 Diltiazem HCl (Cardizem) 20 mg Q1H PRN IV HR > 120 11/07/16 19:00 12/07/16 18:59 11/08/16 14:20 Docusate Sodium (Colace) 100 mg TWICE A DAY ORAL 11/08/16 09:00 12/08/16 08:59 11/08/16 08:41 Heparin Sodium (Porcine) (Heparin 5000 units/ml) 5,000 units EVERY 12 HOURS SUBQ 11/07/16 21:00 12/07/16 20:59 11/07/16 21:31 Insulin Aspart (NovoLOG) EVERY 6 HOURS SUBQ 11/08/16 00:00 12/08/16 00:00 11/08/16 17:36 Lorazepam (Ativan 2mg/ml 1ml) 2 mg Q4H PRN IV For Anxiety 11/07/16 19:00 11/14/16 18:59 Methylprednisolone Sodium Succinate (Solu-MEDROL) 60 mg EVERY 12 HOURS IV 11/07/16 21:00 12/07/16 20:59 11/08/16 08:43 Morphine Sulfate (Morphine Sulfate) 2 mg Q4H PRN IVP MODERATE PAIN 4-6 11/07/16 19:00 11/14/16 18:59 Morphine Sulfate (Morphine Sulfate) 4 mg Q4H PRN IVP PAIN 7-10 11/07/16 19:00 11/14/16 18:59 Nitroglycerin (Ntg) 0.4 mg Q5M X 3 DOSES PRN SL Prn Chest Pain 11/07/16 18:30 12/07/16 18:29 Ondansetron HCl (Zofran) 4 mg Q6H PRN IVP Nausea & Vomiting 11/07/16 19:00 12/07/16 18:59 Pantoprazole (Protonix) 40 mg DAILY IV 11/08/16 09:00 12/08/16 08:59 11/08/16 08:42 Polyethylene Glycol (Miralax) 17 gm DAILYPRN PRN ORAL Constipation 11/07/16 19:00 12/07/16 18:59 Sodium Chloride (Sodium Chloride 1000ml bag) 1,000 ml @ 50 mls/hr Q20H IV 11/07/16 19:30 6/15/17 19:29 11/08/16 15:39 Theophylline (Theophylline) 80 mg Q6HR ORAL 11/08/16 00:00 12/08/16 00:00 11/08/16 17:36 DEONTE HANSON M.D. November 08, 2016 18:50
[2016-11-08 20:00] VITALS: BP 119/78
[2016-11-09] MEDS: NovoLOG Insulin Flexpen SUBQ SCH ×4 (00:10→16:53)
[2016-11-09] MEDS: Theophylline 80mg/15ml ORAL SCH ×3 (00:11→12:33)
[2016-11-09 00:46] VITALS: BP 137/81
[2016-11-09 04:00] VITALS: BP 155/86
[2016-11-09 05:33] LABS: MEAN CORPUSCULAR HEMOGLOBIN 33.6 PG (27.0-31.0); MEAN CORPUSCULAR VOLUME 102 FL (80-99); MEAN PLATELET VOLUME 5.6 FL (6.5-10.1); PLATELET COUNT 195 K/UL (150-450); RED BLOOD COUNT 4.01 M/UL (4.70-6.10); RED CELL DISTRIBUTION WIDTH 12.1 % (11.6-14.8); WHITE BLOOD COUNT 5.6 K/UL (4.8-10.8)
[2016-11-09 06:04] LABS: ALANINE AMINOTRANSFERASE 15 U/L (3-41); ALBUMIN/GLOBULIN RATIO 1.7 (1.0-2.7); ANION GAP 9 (5-15); ASPARTATE AMINO TRANSFERASE 19 U/L (5-40); CALCIUM 8.1 mg/dL (8.6-10.2); CARBON DIOXIDE 35 mEQ/L (20-30); CHLORIDE 96 mEQ/L (98-107); CREATININE 0.8 mg/dL (0.7-1.2); HEMOLYSIS 13; SODIUM 140 mEQ/L (135-145); TOTAL PROTEIN 4.6 g/dL (6.6-8.7)
[2016-11-09 08:00] VITALS: BP 147/94
[2016-11-09] MEDS: Docusate 100mg/10ml Liq ORAL SCH ×2 (09:00→16:52)
[2016-11-09] MEDS: Heparin 5000 units/ml inj SUBQ SCH ×2 (09:25→21:19)
[2016-11-09] MEDS: Solu-MEDROL 125mg Inj IV SCH (09:27)
[2016-11-09] MEDS: Pantoprazole Inj IV SCH (09:31)
[2016-11-09] MEDS ORDERED: Tubing IV Secondary IV ONE ×2 (09:59→22:46)
[2016-11-09 12:00] VITALS: BP 131/83
--- NOTE | 2016-11-09 12:30 | Pulmonology Progress Note ---
Assessment/Plan Problems: (1) Respiratory failure, acute (2) Aspiration pneumonia (3) Restrictive lung disease (4) Encephalopathy acute (5) thoracoplasy Assessment/Plan improving continue respiratory treatment pt/ot swallow study noted check labs in am dc steroids dc planning soon talked to pts son and , they agreed with dc planning to rehab and DNR Subjective ROS Limited/Unobtainable: Yes Allergies: Coded Allergies: No Known Allergies (Unverified , 03/13/15) Objective Last 24 Hour Vital Signs Date Time Temp Pulse Resp B/P Pulse Ox O2 Delivery O2 Flow Rate FiO2 11/09/16 09:40 18 99 Nasal Cannula 3.0 11/09/16 08:33 Nasal Cannula 2.0 11/09/16 08:00 97.8 72 16 147/94 99 Bi-pap 40 11/09/16 07:47 98 Nasal Cannula 2.0 11/09/16 05:12 82 14 95 Facial 40 11/09/16 04:00 98.9 100 17 155/86 99 Bi-pap 40 11/09/16 03:42 110 11/09/16 03:12 76 26 98 Facial 40 11/09/16 01:09 85 18 98 Facial 40 11/09/16 00:46 98.1 90 23 137/81 98 Bi-pap 40 11/09/16 00:00 128 11/08/16 23:26 68 26 93 Facial 40 11/08/16 21:18 Nasal Cannula 2.0 28 11/08/16 21:18 98 Nasal Cannula 2.0 28 11/08/16 20:52 163 119/78 11/08/16 20:00 30 11/08/16 20:00 139 11/08/16 20:00 98.1 114 24 119/78 95 Nasal Cannula 3.0 11/08/16 17:00 Nasal Cannula 2.0 28 11/08/16 17:00 97 Nasal Cannula 2.0 28 11/08/16 16:00 97.7 92 18 107/66 97 Nasal Cannula 3.0 11/08/16 16:00 101 11/08/16 14:20 130 103/63 Intake and Output 11/08/16 11/09/16 18:59 06:59 Intake Total 1105.0 ml 600 ml Output Total 400 ml 800 ml Balance 705.0 ml -200 ml Intake Oral 120 ml IV Total 985.0 ml 600 ml Output Urine Total 400 ml 800 ml # Bowel Movements 5 General Appearance: WD/WN HEENT: normocephalic, atraumatic Respiratory/Chest: chest wall non-tender, lungs clear Cardiovascular: normal peripheral pulses, normal rate Abdomen: normal bowel sounds, soft, non tender Genitourinary: normal external genitalia Skin: no rash 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 Laboratory Tests 11/09/16 03:50: White Blood Count 5.6, Red Blood Count 4.01L, Hemoglobin 13.5L, Hematocrit 40.8L , Mean Corpuscular Volume 102H, Mean Corpuscular Hemoglobin 33.6H, Mean Corpuscular Hemoglobin Concent 33.0, Red Cell Distribution Width 12.1, Platelet Count 195, Mean Platelet Volume 5.6L, Neutrophils (%) (Auto) , Lymphocytes (%) ( Auto) , Monocytes (%) (Auto) , Eosinophils (%) (Auto) , Basophils (%) (Auto) , Sodium Level 140, Potassium Level 4.0, Chloride Level 96L, Carbon Dioxide Level 35H, Anion Gap 9, Blood Urea Nitrogen 26H, Creatinine 0.8, Estimat Glomerular Filtration Rate , Glucose Level 119H, Calcium Level 8.1L, Total Bilirubin 0.4, Aspartate Amino Transf (AST/SGOT) 19, Alanine Aminotransferase (ALT/SGPT) 15, Alkaline Phosphatase 33L, Pro-B-Type Natriuretic Peptide 1703H, Total Protein 4.6L, Albumin 2.9L, Globulin 1.7, Albumin/Globulin Ratio 1.7 Current Medications Medications (Trade) Dose Ordered Sig/Jer Route PRN Reason Start Time Stop Time Status Last Admin Dose Admin Albuterol/ Ipratropium (DuoNeb 0.5-3(2.5)mg/3ml) 3 ml Q4H PRN HHN dyspnea 11/07/16 19:00 11/12/16 18:59 Azithromycin/ Dextrose (Zithromax/D5W) 275 ml @ 275 mls/hr Q24HRS IV 11/08/16 13:00 11/12/16 13:01 11/08/16 12:32 Dextrose (Dextrose 50%) STAT PRN IV Hypoglycemia 11/07/16 19:00 12/07/16 18:59 Diltiazem HCl (Cardizem) 20 mg Q1H PRN IV HR > 120 11/07/16 19:00 12/07/16 18:59 11/08/16 20:52 Docusate Sodium (Colace) 100 mg TWICE A DAY ORAL 11/08/16 09:00 12/08/16 08:59 11/08/16 08:41 Heparin Sodium (Porcine) (Heparin 5000 units/ml) 5,000 units EVERY 12 HOURS SUBQ 11/07/16 21:00 12/07/16 20:59 11/09/16 09:25 Insulin Aspart (NovoLOG) EVERY 6 HOURS SUBQ 11/08/16 00:00 12/08/16 00:00 11/09/16 06:28 Lorazepam (Ativan 2mg/ml 1ml) 2 mg Q4H PRN IV For Anxiety 11/07/16 19:00 11/14/16 18:59 11/09/16 01:29 Morphine Sulfate (Morphine Sulfate) 2 mg Q4H PRN IVP MODERATE PAIN 4-6 11/07/16 19:00 11/14/16 18:59 Nitroglycerin (Ntg) 0.4 mg Q5M X 3 DOSES PRN SL Prn Chest Pain 11/07/16 18:30 12/07/16 18:29 Ondansetron HCl (Zofran) 4 mg Q6H PRN IVP Nausea & Vomiting 11/07/16 19:00 12/07/16 18:59 Pantoprazole (Protonix) 40 mg DAILY IV 11/08/16 09:00 12/08/16 08:59 11/09/16 09:31 Polyethylene Glycol (Miralax) 17 gm DAILYPRN PRN ORAL Constipation 11/07/16 19:00 12/07/16 18:59 Theophylline (Theophylline) 80 mg Q6HR ORAL 11/08/16 00:00 12/08/16 00:00 11/09/16 06:27 MARLYS WYMAN November 09, 2016 12:30
[2016-11-09] MEDS: Azithromycin 500 MG in D5W 275 ML IV SCH (12:50)
--- NOTE | 2016-11-09 14:38 | Infectious Diseases Prog Note ---
Assessment/Plan Assessment/Plan ASSESSMENT: 85 y/o male with: // Acute on chronic respiratory failure SP BiPAP r/o COPD exacerbation vs CAP vs influenza - SCx : Nl Fl and yeast ( colonizer ) - CXR 11/05: No evidence of acute cardiopulmonary disease. Stable chronic changes - negative: influenza - h/o COPD, restrictive lung disease, thoracoplasty // Afebrile without leukocytosis // Acute encephalopathy - improved - CT Head: No evidence of acute intracranial pathology. 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, chronic microvascular ischemic changes, atrophy // AAA SP stent graft repair // NKDA // Full Code PLAN: - continue Zithromax d# 4 / 5 ( 11/07 SP Zosyn d# ) - taper steroids per pulm - monitor CBC, temperatures - monitor BMP - monitor CXR - BiPAP prn Subjective Constitutional: Denies: anorexia, chills, drenching sweats, fatigue, fever, no symptoms, other Allergies: Coded Allergies: No Known Allergies (Unverified , 03/13/15) Subjective afebrile Objective Vital Signs Last 24 Hour Vital Signs Date Time Temp Pulse Resp B/P Pulse Ox O2 Delivery O2 Flow Rate FiO2 11/09/16 12:00 98.2 100 18 131/83 98 Nasal Cannula 3.0 11/09/16 09:40 18 99 Nasal Cannula 3.0 11/09/16 08:33 Nasal Cannula 2.0 11/09/16 08:00 97.8 72 16 147/94 99 Bi-pap 40 11/09/16 07:47 98 Nasal Cannula 2.0 11/09/16 05:12 82 14 95 Facial 40 11/09/16 04:00 98.9 100 17 155/86 99 Bi-pap 40 11/09/16 03:42 110 11/09/16 03:12 76 26 98 Facial 40 11/09/16 01:09 85 18 98 Facial 40 11/09/16 00:46 98.1 90 23 137/81 98 Bi-pap 40 11/09/16 00:00 128 11/08/16 23:26 68 26 93 Facial 40 11/08/16 21:18 Nasal Cannula 2.0 28 11/08/16 21:18 98 Nasal Cannula 2.0 28 11/08/16 20:52 163 119/78 11/08/16 20:00 30 11/08/16 20:00 139 11/08/16 20:00 98.1 114 24 119/78 95 Nasal Cannula 3.0 11/08/16 17:00 Nasal Cannula 2.0 28 11/08/16 17:00 97 Nasal Cannula 2.0 28 11/08/16 16:00 97.7 92 18 107/66 97 Nasal Cannula 3.0 11/08/16 16:00 101 Height (Feet): 5 Height (Inches): 3.00 Weight (Pounds): 130 HEENT: anicteric Respiratory/Chest: no respiratory distress Cardiovascular: regular rhythm Abdomen: no organomegaly Laboratory Tests Test 11/09/16 03:50 White Blood Count 5.6 K/UL (4.8-10.8) Red Blood Count 4.01 M/UL (4.70-6.10) L Hemoglobin 13.5 G/DL (14.2-18.0) L Hematocrit 40.8 % (42.0-52.0) L Mean Corpuscular Volume 102 FL (80-99) H Mean Corpuscular Hemoglobin 33.6 PG (27.0-31.0) H Mean Corpuscular Hemoglobin Concent 33.0 G/DL (32.0-36.0) Red Cell Distribution Width 12.1 % (11.6-14.8) Platelet Count 195 K/UL (150-450) Mean Platelet Volume 5.6 FL (6.5-10.1) L Neutrophils (%) (Auto) % (45.0-75.0) Lymphocytes (%) (Auto) % (20.0-45.0) Monocytes (%) (Auto) % (1.0-10.0) Eosinophils (%) (Auto) % (0.0-3.0) Basophils (%) (Auto) % (0.0-2.0) Sodium Level 140 mEQ/L (135-145) Potassium Level 4.0 mEQ/L (3.4-4.9) Chloride Level 96 mEQ/L (98-107) L Carbon Dioxide Level 35 mEQ/L (20-30) H Anion Gap 9 (5-15) Blood Urea Nitrogen 26 mg/dL (7-23) H Creatinine 0.8 mg/dL (0.7-1.2) Estimat Glomerular Filtration Rate mL/min (>60) Glucose Level 119 mg/dL (74-106) H Calcium Level 8.1 mg/dL (8.6-10.2) L Total Bilirubin 0.4 mg/dL (0.0-1.2) Aspartate Amino Transf (AST/SGOT) 19 U/L (5-40) Alanine Aminotransferase (ALT/SGPT) 15 U/L (3-41) Alkaline Phosphatase 33 U/L (40-129) L Pro-B-Type Natriuretic Peptide 1703 pg/mL (0-450) H Total Protein 4.6 g/dL (6.6-8.7) L Albumin 2.9 g/dL (3.5-5.2) L Globulin 1.7 g/dL Albumin/Globulin Ratio 1.7 (1.0-2.7) Current Medications Medications (Trade) Dose Ordered Sig/Jer Route PRN Reason Start Time Stop Time Status Last Admin Dose Admin Albuterol/ Ipratropium (DuoNeb 0.5-3(2.5)mg/3ml) 3 ml Q4H PRN HHN dyspnea 11/07/16 19:00 11/12/16 18:59 Azithromycin/ Dextrose (Zithromax/D5W) 275 ml @ 275 mls/hr Q24HRS IV 11/08/16 13:00 11/12/16 13:01 11/09/16 12:50 Dextrose (Dextrose 50%) STAT PRN IV Hypoglycemia 11/07/16 19:00 12/07/16 18:59 Diltiazem HCl (Cardizem) 20 mg Q1H PRN IV HR > 120 11/07/16 19:00 12/07/16 18:59 11/08/16 20:52 Docusate Sodium (Colace) 100 mg TWICE A DAY ORAL 11/08/16 09:00 12/08/16 08:59 11/08/16 08:41 Heparin Sodium (Porcine) (Heparin 5000 units/ml) 5,000 units EVERY 12 HOURS SUBQ 11/07/16 21:00 12/07/16 20:59 11/09/16 09:25 Insulin Aspart (NovoLOG) EVERY 6 HOURS SUBQ 11/08/16 00:00 12/08/16 00:00 11/09/16 06:28 Lorazepam (Ativan 2mg/ml 1ml) 2 mg Q4H PRN IV For Anxiety 11/07/16 19:00 11/14/16 18:59 11/09/16 01:29 Morphine Sulfate (Morphine Sulfate) 2 mg Q4H PRN IVP MODERATE PAIN 4-6 11/07/16 19:00 11/14/16 18:59 Nitroglycerin (Ntg) 0.4 mg Q5M X 3 DOSES PRN SL Prn Chest Pain 11/07/16 18:30 12/07/16 18:29 Ondansetron HCl (Zofran) 4 mg Q6H PRN IVP Nausea & Vomiting 11/07/16 19:00 12/07/16 18:59 Pantoprazole (Protonix) 40 mg DAILY IV 11/08/16 09:00 12/08/16 08:59 11/09/16 09:31 Polyethylene Glycol (Miralax) 17 gm DAILYPRN PRN ORAL Constipation 11/07/16 19:00 12/07/16 18:59 Theophylline (Theophylline) 80 mg Q6HR ORAL 11/08/16 00:00 12/08/16 00:00 11/09/16 12:33 DEONTE HANSON M.D. November 09, 2016 14:38
[2016-11-09 16:00] VITALS: BP 108/50
[2016-11-09] MEDS: OLANZapine 2.5mg tab ORAL SCH (18:25)
[2016-11-09 20:00] VITALS: BP 119/70
[2016-11-09] MEDS ORDERED: NS 275ml ONE (22:46)
[2016-11-10] VITALS: BP 115/71
[2016-11-10] MEDS: NovoLOG Insulin Flexpen SUBQ SCH ×2 (00:19→06:00)
--- NOTE | 2016-11-10 00:31 | Consultation ---
DATE OF CONSULTATION: HISTORY OF PRESENT ILLNESS: This is an 85-year-old male with a history of multiple medical problems, including COPD, , and cardiac problems, who has been admitted to the hospital due to COPD and respiratory failure. The patient was assessed yesterday, 11/08/2016. The patient appeared to be confused presenting with waxing and waning consciousness and anxious attempting to come out of bed. The patient is a poor historian and was unable to provide history. Therefore, the majority of the information was gathered from the chart PAST PSYCHIATRIC HISTORY: Unknown. PAST MEDICAL HISTORY: Chronic obstructive pulmonary disease, aortic aneurysm, kyphosis, and restrictive lung disease. PAST SURGICAL HISTORY: Partial lobectomy and abdominal aortic stent graft repair. MEDICATIONS: Outside of the hospital include heparin subcutaneous, Zithromax, theophylline, Solu-Medrol, and Zosyn. ALLERGIES: No known drug allergies. SUBSTANCE ABUSE HISTORY: The patient has no history of illicit drugs or alcohol. Apparently, he has been a nonsmoker. SOCIAL HISTORY: The patient is . Son and are involving in his life. He lives at home. MENTAL STATUS EXAMINATION: The patient in no acute distress. However, he is a poor historian. Mood was neutral. Affect is constricted. Congruent mood. Thought process was concrete. Thought content, no suicidal or homicidal ideation. ASSESSMENT: AXIS I Delirium due to general medical condition. AXIS II Deferred. AXIS III Respiratory failure. AXIS IV Low. AXIS V Global assessment of functioning is 20. PLAN: 1. The patient will be started on Zyprexa 2.5 mg b.i.d. 2. Provide the patient with supportive therapy and reality orientation . Ameya Pina M.D. DR: Irina JOB#: [id number] CC:
[2016-11-10 04:00] VITALS: BP 121/89
[2016-11-10 05:41] LABS: MEAN CORPUSCULAR HEMOGLOBIN 33.9 PG (27.0-31.0); MEAN CORPUSCULAR HGB CONC 33.4 G/DL (32.0-36.0); MEAN CORPUSCULAR VOLUME 102 FL (80-99); MEAN PLATELET VOLUME 6.4 FL (6.5-10.1); PLATELET COUNT 192 K/UL (150-450); RED BLOOD COUNT 3.96 M/UL (4.70-6.10); RED CELL DISTRIBUTION WIDTH 11.9 % (11.6-14.8); WHITE BLOOD COUNT 8.6 K/UL (4.8-10.8)
[2016-11-10 06:13] LABS: ALANINE AMINOTRANSFERASE 13 U/L (3-41); ALBUMIN/GLOBULIN RATIO 1.8 (1.0-2.7); ANION GAP 6 (5-15); ASPARTATE AMINO TRANSFERASE 15 U/L (5-40); CALCIUM 8.1 mg/dL (8.6-10.2); CARBON DIOXIDE 38 mEQ/L (20-30); CHLORIDE 101 mEQ/L (98-107); CREATININE 0.7 mg/dL (0.7-1.2); HEMOLYSIS 13; MAGNESIUM 2.2 mg/dL (1.7-2.5); PHOSPHORUS 1.7 mg/dL (2.5-4.8); POTASSIUM 4.2 mEQ/L (3.4-4.9); SODIUM 145 mEQ/L (135-145); TOTAL PROTEIN 4.2 g/dL (6.6-8.7)
--- NOTE | 2016-11-10 08:05 | Infectious Diseases Prog Note ---
Assessment/Plan Assessment/Plan ASSESSMENT: 85 y/o male with: // Acute on chronic respiratory failure SP BiPAP - improved, SCx nl hilary, yeast ( colonizer ) - CXR 11/05: No evidence of acute cardiopulmonary disease. Stable chronic changes - negative: influenza - h/o COPD, restrictive lung disease, thoracoplasty // Afebrile without leukocytosis ( SP steroids ) // Acute encephalopathy - improved - CT Head: No evidence of acute intracranial pathology. 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 Monitor pt off of ABX ( 11/07 SP Zosyn d# ) - monitor CBC, temperatures, re-culture if acute change - monitor BMP - monitor CXR - BiPAP prn Subjective Allergies: Coded Allergies: No Known Allergies (Unverified , 03/13/15) Subjective remains afebrile denies SOB Objective Vital Signs Last 24 Hour Vital Signs Date Time Temp Pulse Resp B/P Pulse Ox O2 Delivery O2 Flow Rate FiO2 11/10/16 07:09 94 Nasal Cannula 2.0 11/10/16 07:09 Nasal Cannula 2.0 28 11/10/16 04:53 72 16 98 Facial 40 11/10/16 04:00 98.0 94 20 121/89 99 Bi-pap 2.0 11/10/16 03:54 93 11/10/16 03:29 64 15 99 Facial 40 11/10/16 01:18 65 14 100 Facial 40 11/10/16 00:00 40 11/10/16 00:00 98.6 93 21 115/71 99 Bi-pap 2.0 11/09/16 23:47 104 11/09/16 22:46 105 23 96 40 11/09/16 22:30 40 11/09/16 20:00 98.0 83 20 119/70 98 Nasal Cannula 3.0 11/09/16 19:23 111 11/09/16 18:36 97 Nasal Cannula 2.0 11/09/16 18:36 Nasal Cannula 2.0 11/09/16 16:00 128 11/09/16 16:00 98.2 91 18 108/50 97 Nasal Cannula 3.0 11/09/16 12:00 98.2 100 18 131/83 98 Nasal Cannula 3.0 11/09/16 11:46 105 11/09/16 09:40 18 99 Nasal Cannula 3.0 11/09/16 08:33 Nasal Cannula 2.0 Height (Feet): 5 Height (Inches): 3.00 Weight (Pounds): 130 General Appearance: no acute distress Respiratory/Chest: decreased breath sounds Cardiovascular: normal rate, regular rhythm Abdomen: normal bowel sounds, soft, non tender, non distended Laboratory Tests Test 11/10/16 03:30 White Blood Count 8.6 K/UL (4.8-10.8) # Red Blood Count 3.96 M/UL (4.70-6.10) L Hemoglobin 13.5 G/DL (14.2-18.0) L Hematocrit 40.3 % (42.0-52.0) L Mean Corpuscular Volume 102 FL (80-99) H Mean Corpuscular Hemoglobin 33.9 PG (27.0-31.0) H Mean Corpuscular Hemoglobin Concent 33.4 G/DL (32.0-36.0) Red Cell Distribution Width 11.9 % (11.6-14.8) Platelet Count 192 K/UL (150-450) Mean Platelet Volume 6.4 FL (6.5-10.1) L Neutrophils (%) (Auto) % (45.0-75.0) Lymphocytes (%) (Auto) % (20.0-45.0) Monocytes (%) (Auto) % (1.0-10.0) Eosinophils (%) (Auto) % (0.0-3.0) Basophils (%) (Auto) % (0.0-2.0) Neutrophils % (Manual) Pending Lymphocytes % (Manual) Pending Platelet Estimate Pending Platelet Morphology Pending Sodium Level 145 mEQ/L (135-145) Potassium Level 4.2 mEQ/L (3.4-4.9) Chloride Level 101 mEQ/L (98-107) Carbon Dioxide Level 38 mEQ/L (20-30) H Anion Gap 6 (5-15) Blood Urea Nitrogen 21 mg/dL (7-23) Creatinine 0.7 mg/dL (0.7-1.2) Estimat Glomerular Filtration Rate mL/min (>60) Glucose Level 105 mg/dL (74-106) Calcium Level 8.1 mg/dL (8.6-10.2) L Phosphorus Level 1.7 mg/dL (2.5-4.8) L Magnesium Level 2.2 mg/dL (1.7-2.5) Total Bilirubin 0.4 mg/dL (0.0-1.2) Aspartate Amino Transf (AST/SGOT) 15 U/L (5-40) Alanine Aminotransferase (ALT/SGPT) 13 U/L (3-41) Alkaline Phosphatase 32 U/L (40-129) L Total Protein 4.2 g/dL (6.6-8.7) L Albumin 2.7 g/dL (3.5-5.2) L Globulin 1.5 g/dL Albumin/Globulin Ratio 1.8 (1.0-2.7) Current Medications Medications (Trade) Dose Ordered Sig/Jer Route PRN Reason Start Time Stop Time Status Last Admin Dose Admin Albuterol/ Ipratropium (DuoNeb 0.5-3(2.5)mg/3ml) 3 ml Q4H PRN HHN dyspnea 11/07/16 19:00 11/12/16 18:59 Azithromycin/ Dextrose (Zithromax/D5W) 275 ml @ 275 mls/hr Q24HRS IV 11/08/16 13:00 11/12/16 13:01 11/09/16 12:50 Dextrose (Dextrose 50%) STAT PRN IV Hypoglycemia 11/07/16 19:00 12/07/16 18:59 Diltiazem HCl (Cardizem) 20 mg Q1H PRN IV HR > 120 11/07/16 19:00 12/07/16 18:59 11/08/16 20:52 Docusate Sodium (Colace) 100 mg TWICE A DAY ORAL 11/08/16 09:00 12/08/16 08:59 11/08/16 08:41 Heparin Sodium (Porcine) (Heparin 5000 units/ml) 5,000 units EVERY 12 HOURS SUBQ 11/07/16 21:00 12/07/16 20:59 11/09/16 21:19 Insulin Aspart (NovoLOG) EVERY 6 HOURS SUBQ 11/08/16 00:00 12/08/16 00:00 11/10/16 00:19 Lorazepam (Ativan 2mg/ml 1ml) 2 mg Q4H PRN IV For Anxiety 11/07/16 19:00 11/14/16 18:59 11/09/16 01:29 Morphine Sulfate (Morphine Sulfate) 2 mg Q4H PRN IVP MODERATE PAIN 4-6 11/07/16 19:00 11/14/16 18:59 Nitroglycerin (Ntg) 0.4 mg Q5M X 3 DOSES PRN SL Prn Chest Pain 11/07/16 18:30 12/07/16 18:29 Olanzapine (ZyPREXA) 2.5 mg BID ORAL 11/09/16 19:00 12/09/16 18:59 11/09/16 18:25 Ondansetron HCl (Zofran) 4 mg Q6H PRN IVP Nausea & Vomiting 11/07/16 19:00 12/07/16 18:59 Pantoprazole (Protonix) 40 mg DAILY IV 11/08/16 09:00 12/08/16 08:59 11/09/16 09:31 Polyethylene Glycol (Miralax) 17 gm DAILYPRN PRN ORAL Constipation 11/07/16 19:00 12/07/16 18:59 SHRUTHI JEREZ November 10, 2016 08:05
[2016-11-10 08:08] VITALS: BP 123/70
[2016-11-10] MEDS: Docusate 100mg/10ml Liq ORAL SCH (08:20)
[2016-11-10] MEDS: Pantoprazole Inj IV SCH (08:20)
[2016-11-10] MEDS: OLANZapine 2.5mg tab ORAL SCH (08:21)
[2016-11-10] MEDS: Diltiazem 25mg/5ml IV PRN (08:21)
[2016-11-10] MEDS: Heparin 5000 units/ml inj SUBQ SCH (08:22)
[2016-11-10] MEDS ORDERED: NS 275ml ONE (09:40)
[2016-11-10 10:28] LABS: BAND NEUTROPHILS % (MANUAL) 1 % (0-8); BASOPHILS % (MANUAL) 0 % (0-2); EOSINOPHILS % (MANUAL) 0 % (0-3); LYMPHOCYTES % (MANUAL) 3 % (20-45); NEUTROPHILS % (MANUAL) 87 % (45-75); PLATELET ESTIMATE ADEQUATE; PLATELET MORPHOLOGY NORMAL; TOTAL CELLS COUNTED 100
[2016-11-10 10:30] LABS: MACROCYTES 1+
[2016-11-10] MEDS ORDERED: NovoLOG Insulin Flexpen SUBQ SCH (11:30)
[2016-11-10] MEDS ORDERED: OLANZAPINE2.5 MG ORAL (11:38)
[2016-11-10] MEDS ORDERED: MIRALAX17 G2 ORAL (11:38)
[2016-11-10 12:00] VITALS: BP 102/68
[2016-11-10] MEDS: Azithromycin 500 MG in D5W 275 ML IV SCH (12:05)
--- NOTE | 2016-11-13 13:08 | Discharge Summary ---
Discharge Summary Hospital Course Date of Admission November 03, 2016 at 16:59 Date of Discharge November 10, 2016 at 16:32 Admitting Diagnosis AMS/ HYPOXEMIA HPI Ej Butler is a 86 year old male who was admitted on November 03, 2016 at 16:59 for Altered Mental Status, Hypoxemia Hospital Course dc summary #[id number] Discharge Medications New Medications: Olanzapine (Olanzapine) 2.5 Mg Tablet 2.5 MG ORAL BID for 30 Days, TAB Polyethylene Glycol 3350* (Miralax*) 17 Gm Powd.pack 17 GM ORAL DAILYPRN PRN for 30 Days, PACK Continued Medications: Ipratropium/Albuterol Sulfate (Combivent Respimat Inhal [place]) 4 Gm Aer.w.adap 4 GM IH Pramipexole Di-Hcl (Mirapex) 1 Mg Tablet 0.5 MG PO, #1 Discharge Discharge Disposition Patient was discharged to [facility] (04) Discharge Diagnoses: Discharge Instructions Discharge Instructions Special Instructions I have been assigned to complete a D/C Summary on this account. I was not involved in the patient management Angela Velasquez NP ([facility]) November 13, 2016 13:08
--- NOTE | 2016-11-13 18:27 | Cardiology Report ---
APPROVED REPORT EXAM: Two-dimensional and M-mode echocardiogram with Doppler and color Doppler. INDICATION Tachycardia M-Mode DIMENSIONS IVSd0.7 (0.7-1.1cm)Left Atrium (MM)2.6 (1.6-4.0cm) LVDd3.7 (3.5-5.6cm)Aortic Root2.9 (2.0-3.7cm) PWd0.8 (0.7-1.1cm)Aortic Cusp Exc.1.7 (1.5-2.0cm) LVDs2.2 (2.5-4.0cm) PWs1.0 cm Normal left ventricular chamber size, systolic function and wall motion. Left ventricular ejection fraction estimated to be 65-70%. No evidence of left ventricular hypertrophy. No evidence of pericardial fat or effusion. All other cardiac chamber sizes are within normal limits. Focal aortic valve sclerosis with adequate cusp excursion Thickened mitral valve leaflets with normal excursion. Mitral annulus and aortic root calcification. Pulmonic valve not well visualized. Normal tricuspid valve structure. IVC is normal in size with physiologic collapse. A color flow and spectral Doppler study was performed and revealed: Trace aortic regurgitation. Mild mitral regurgitation. Left ventricular diastolic dysfunction not obtainable due to arrhythmia. Moderate tricuspid regurgitation. Tricuspid systolic velocities suggests peak right ventricular systolic pressure of 56 mmHg Consistent with severe pulmonary hypertension. Pulmonic regurgitation present.
== END 2016-11-10 16:32 | DRG 177 ==
LOC: EDBD 15:49 → EMR 16:05 → EDBEDREQ 16:51 → ICU 16:59 → EDBEDREQ 18:14 → 2W 11-07 19:00
PROC: 5A09457 Assistance with Respiratory Ventilation, 24-96 Consecutive Hours, Continuous Positive Airway Pressure (ICD-10-PCS; principal; 2016-11-03)
DX: J69.0 Pneumonitis due to inhalation of food and vomit (principal); G93.40 Encephalopathy, unspecified; J96.20 Acute and chronic respiratory failure, unspecified whether with hypoxia or hypercapnia; J98.4 Other disorders of lung; Z90.2 Acquired absence of lung [part of]; Z66 Do not resuscitate
CPT/HCPCS: 36415; 36600; 70450; 71010; 80053; 81003; 82550; 82553; 82803; 82962; 83605; 83735; 83880; 84100; 84484; 85007; 85025; 85651; 86140; 86710; 87040; 87070; 87081; 87205; 93005; 93306; 94640; 94664; 94760; J1815; J2405; J7620